=== PATIENT | male | born 1950 | race Caucasian/White ===

== ENCOUNTER 2019-07-17 16:00 | Inpatient (IN) | payer MEDICARE, MEDICAID ==
[2019-07-17 18:42] VITALS: BP 137/73
[2019-07-17] MEDS ORDERED: Maalox 30 mL Cup PO PRN (18:54)
--- NOTE | 2019-07-17 19:20 | History & Physical ---
ADMIT DATE: 07/17/2019 HISTORY OF PRESENT ILLNESS: The patient is a 69-year-old male with long history of psychosis, resident at [facility] admitted to [facility] Department for evaluation and treatment. The patient admitted under Dr. Ashton's service. No fever, no chills, no nausea, no vomiting. The patient has cellulitis of both feet for a few days. PAST MEDICAL HISTORY: Significant for psychosis, chronic constipation, chronic smoking. PAST SURGICAL HISTORY: No recent surgery. ALLERGIES: PENICILLIN. MEDICATIONS: Follow admission reconciliation. SOCIAL HISTORY: Chronic smoker. No alcohol or drug. FAMILY HISTORY: Noncontributory. REVIEW OF SYSTEMS: RENAL SYSTEM: No history of chronic renal disorder. CARDIOVASCULAR SYSTEM: No coronary artery disease. ENDOCRINE SYSTEM: No diabetes or thyroid problem. GASTROINTESTINAL SYSTEM: No upper or lower gastrointestinal bleed. NEUROLOGICAL SYSTEM: No seizure disorder. SKELETOMUSCULAR SYSTEM: No muscular dystrophy. HEMATOLOGICAL SYSTEM: No bleeding tendencies. RESPIRATORY SYSTEM: Chronic smoker. GENITOURINARY SYSTEM: No dysuria or hematuria. PHYSICAL EXAMINATION: GENERAL: She is awake, alert. VITAL SIGNS: Temperature is 97.8, heart rate 90, blood pressure 137/73. HEENT: Normocephalic. Pupils are reactive to light and accommodation. Sclerae clear. NECK: Supple. Negative for lymphadenopathy, JVD or bruit. CHEST: Bilaterally normal. No rhonchi or wheezing. HEART: S1, S2 normal. No murmur or gallop rhythm. ABDOMEN: Soft, bowel sounds positive. EXTREMITIES: No edema. NEUROLOGIC: Awake, alert, mildly confused. No focal muscle deficits. Cranial nerves 2-12 is intact. SKIN: Significant for redness on the dorsum of both feet. ASSESSMENT: 1. Cellulitis of both feet. 2. Chronic constipation. 3. Chronic smoking. 4. Psychosis. PLAN: 1. The patient in the hospital under Dr. Ashton's service. Medical problems addressed during hospitalization is cellulitis of both foot and psychosis. Medical problem addressed at discharge is psychosis. The patient is medically stable for activity. Thank you Dr. Ashton for asking me to see your patient. The patient is a full code. JOB# [id number]
[2019-07-18] MEDS: Haldol Oral Sol.(concentrate) 10 mg/5 mL Udc PO SCH ×3 (09:10→21:16)
[2019-07-18] MEDS: Multivitamin Tab PO SCH (09:12)
--- NOTE | 2019-07-18 17:12 | Internal Medicine Prog Note ---
Internal Medicine Subjective - Subjective Service Date: 07/18/19 Patient seen and examined:: without staff (HE FEELS BETTER) Patient is:: awake, verbal, in bed, talking, confused Per staff patient has:: no adverse event Internal Medicine Objective - Physical Exam Vitals and I&O: Vital Signs Temp 98 F 07/17/19 21:00 Pulse 76 07/17/19 21:00 Resp 16 07/17/19 21:00 BP 126/68 07/17/19 21:00 Pulse Ox 98 07/17/19 21:00 Intake & Output 07/17/19 07/18/19 07/18/19 18:59 06:59 18:59 Intake Total 720 Balance 720 Intake: Oral 720 Other: # Voids 1 # Bowel Movements 1 Weight Source Bedscale Active Medications: Current Medications Acetaminophen (Tylenol) 650 mg PO Q4HR PRN PRN Reason: Mild Pain / Temp above 100 Stop: 09/15/19 18:53 Al Hydrox/Mg Hydrox/Simethicone (Maalox) 30 ml PO Q4HR PRN PRN Reason: GI DISTRESS Stop: 09/15/19 18:53 Divalproex Sodium (Depakote Dr) 500 mg PO DAILY ROSA; Protocol Stop: 09/16/19 08:59 Last Admin: 07/18/19 09:11 Dose: 500 mg Divalproex Sodium (Depakote Dr) 750 mg PO HS ROSA; Protocol Stop: 09/16/19 20:59 Docusate Sodium (Colace) 250 mg PO DAILY ROSA Stop: 09/16/19 08:59 Last Admin: 07/18/19 09:12 Dose: 250 mg Haloperidol Lactate (Haldol Concentrate 10mg/5ml Susp) 2 mg PO TID ROSA; Protocol Stop: 09/16/19 08:59 Last Admin: 07/18/19 14:00 Dose: 2 mg Lorazepam (Ativan) 0.5 mg PO Q4HR PRN; Protocol PRN Reason: Anxiety/Agitation Stop: 08/16/19 20:24 Last Admin: 07/18/19 17:00 Dose: 0.5 mg Multivitamins/Vitamin C (Theragran) 1 tab PO DAILY ROSA Stop: 09/16/19 08:59 Last Admin: 07/18/19 09:12 Dose: 1 tab Risperidone (Risperdal) 2 mg PO BID ROSA; Protocol Stop: 09/16/19 08:59 Last Admin: 07/18/19 17:00 Dose: 2 mg Trihexyphenidyl HCl (Artane) 5 mg PO QID ROSA Stop: 09/15/19 20:59 Last Admin: 07/18/19 16:59 Dose: 5 mg Zolpidem Tartrate (Ambien) 5 mg PO HS PRN PRN Reason: Insomnia Stop: 09/15/19 18:53 Last Admin: 07/17/19 21:11 Dose: 5 mg General: alert HEENT: NC/AT, PERRLA, EOMI, anicteric sclerae, throat clear Neck: Supple, No JVD, No thyromegaly, +2 carotid pulse wo bruit, No LAD Lungs: CTAB Cardiovascular: RRR, Normal S1, Normal S2, without murmur Abdomen: soft, non-tender, non-distended Extremities: rash (OVER BOTH FEET) Neurological: no change Internal Medicine Assmt/Plan - Assessment Assessment: 1.CELLULITES OF BOTH FEET 2.CHRONIC CONSTIPATION 3.CHRONIC SMOKING 4.PSYCHOSIS - Plan Plan: CONTINUE ON CURRENT MEDICATION AND DIET
--- NOTE | 2019-07-18 20:15 | Psychiatric Evaluation ---
DATE OF SERVICE: AGE: 69. SEX: Male. PHYSICIAN: Dr. Ashton. CHIEF COMPLAINT: Aggressive behavior and threatening staff. HISTORY OF PRESENT ILLNESS: The patient is a 69-year-old male with history of schizophrenia. The patient was transferred from [facility] because of verbal abuse to staff and peers as well as hitting the staff. The patient also was unable to follow staff directions. He also has been in angry mood and has been having severe mood swings. PAST PSYCHIATRIC HISTORY: The patient has history of schizophrenia and anxiety. PAST MEDICAL HISTORY: The patient has history of anemia and gastroesophageal reflux disease and has deformities of the toe. SOCIAL HISTORY: The patient lives in [facility]. No known alcohol or street drug use. ALLERGIES: No known allergies. MENTAL STATUS EXAMINATION: The patient appears slightly older than his stated age. Irritable mood. Anxious. Disorganized thoughts. Actively responding. Gets angry and agitated easily. The patient denies auditory or visual hallucinations, but seems to be suspicious and paranoid. He denies any suicidal or homicidal ideations. The patient is alert and oriented to situation, but not to place or person. Impaired immediate and recent memory, but intact remote memories. Poor insight and poor judgment. ASSESSMENT: PRIMARY DIAGNOSIS: Schizophrenic disorder. Rule out schizoaffective disorder. SECONDARY DIAGNOSES: 1. Anemia. 2. Chronic obstructive pulmonary disease. 3. Gastroesophageal reflux disease. TREATMENT PLAN: We will monitor the patient's behavior and condition closely. We will start individual as well as milieu psychotherapy. We will continue psychotropic medications and we will adjust the dose. ESTIMATED LENGTH OF STAY: 5-7 days. PATIENT'S STRENGTHS AND WEAKNESSES: The patient's strength is not clear at this time. Weakness is his ineffective coping and his poor impulse control. AFTER DISCHARGE PLAN: Outpatient treatment and followup. We will continue as an outpatient. CRITERIA FOR DISCHARGE: The patient will not be aggressive and will stabilize psychotropic medications and will establish outpatient treatment plans. [facility]# [id number]
[2019-07-19] MEDS: Haldol Oral Sol.(concentrate) 10 mg/5 mL Udc PO SCH ×3 (08:59→21:55)
[2019-07-19] MEDS: Multivitamin Tab PO SCH (09:00)
--- NOTE | 2019-07-19 19:42 | Internal Medicine Prog Note ---
Internal Medicine Subjective - Subjective Service Date: 07/19/19 Patient seen and examined:: with staff (HE IS DOING BETTER) Patient is:: awake, verbal, in bed, talking, confused Per staff patient has:: no adverse event Internal Medicine Objective - Physical Exam Vitals and I&O: Vital Signs Temp 98.7 F 07/19/19 14:00 Pulse 83 07/19/19 14:00 Resp 20 07/19/19 14:00 BP 129/78 07/19/19 14:00 Pulse Ox 97 07/19/19 14:00 Intake & Output 07/19/19 07/19/19 07/20/19 06:59 18:59 06:59 Intake Total 120 1250 Balance 120 1250 Intake: Oral 120 1250 Other: # Voids 3 Active Medications: Current Medications Acetaminophen (Tylenol) 650 mg PO Q4HR PRN PRN Reason: Mild Pain / Temp above 100 Stop: 09/15/19 18:53 Al Hydrox/Mg Hydrox/Simethicone (Maalox) 30 ml PO Q4HR PRN PRN Reason: GI DISTRESS Stop: 09/15/19 18:53 Divalproex Sodium (Depakote Dr) 500 mg PO DAILY ROSA; Protocol Stop: 09/16/19 08:59 Last Admin: 07/19/19 09:00 Dose: 500 mg Divalproex Sodium (Depakote Dr) 750 mg PO HS ROSA; Protocol Stop: 09/16/19 20:59 Last Admin: 07/18/19 21:16 Dose: 750 mg Docusate Sodium (Colace) 250 mg PO DAILY ROSA Stop: 09/16/19 08:59 Last Admin: 07/19/19 09:00 Dose: 250 mg Haloperidol Lactate (Haldol Concentrate 10mg/5ml Susp) 2 mg PO TID ROSA; Protocol Stop: 09/16/19 08:59 Last Admin: 07/19/19 14:00 Dose: 2 mg Lorazepam (Ativan) 0.5 mg PO Q4HR PRN; Protocol PRN Reason: Anxiety/Agitation Stop: 08/16/19 20:24 Last Admin: 07/19/19 09:00 Dose: 0.5 mg Multivitamins/Vitamin C (Theragran) 1 tab PO DAILY ROSA Stop: 09/16/19 08:59 Last Admin: 07/19/19 09:00 Dose: 1 tab Risperidone (Risperdal) 2 mg PO BID ROSA; Protocol Stop: 09/16/19 08:59 Last Admin: 07/19/19 18:04 Dose: 2 mg Trihexyphenidyl HCl (Artane) 5 mg PO QID ROSA Stop: 09/15/19 20:59 Last Admin: 07/19/19 18:04 Dose: 5 mg Zolpidem Tartrate (Ambien) 5 mg PO HS PRN PRN Reason: Insomnia Stop: 09/15/19 18:53 Last Admin: 07/18/19 21:17 Dose: 5 mg General: alert HEENT: NC/AT, PERRLA, EOMI, anicteric sclerae, throat clear Neck: Supple, No JVD, No thyromegaly, +2 carotid pulse wo bruit, No LAD Lungs: CTAB Cardiovascular: RRR, Normal S1, Normal S2, without murmur Abdomen: soft, non-tender, non-distended Extremities: rash (OVER BOTH FEET) Neurological: no change Internal Medicine Assmt/Plan - Assessment Assessment: 1.CELLULITES OF BOTH FEET 2.CHRONIC CONSTIPATION 3.CHRONIC SMOKING 4.PSYCHOSIS - Plan Plan: CONTINUE ON CURRENT MEDICATION AND DIET
--- NOTE | 2019-07-19 23:08 | Progress Notes ---
DATE: 07/19/2019 SUBJECTIVE: Chart was reviewed and the patient interviewed. Also discussed the patient's condition with the staff and reviewed records and labs. The patient is still in angry mood and he is still easily agitated. The patient also is still guarded and still wants to be left alone. The patient also still needs lots of redirections. Otherwise, the patient started to take his medications with no side effects of medications. ASSESSMENT: The patient is still in angry mood and still needs close monitoring. TREATMENT PLAN: Continue to monitor behavior and condition closely. Also, continue adjusting psychotropic medications and working on behavioral modification. JOB# [id number]
[2019-07-20] MEDS: Haldol Oral Sol.(concentrate) 10 mg/5 mL Udc PO SCH ×3 (08:37→20:44)
[2019-07-20] MEDS: Multivitamin Tab PO SCH (08:37)
--- NOTE | 2019-07-20 20:35 | Internal Medicine Prog Note ---
Internal Medicine Subjective - Subjective Service Date: 07/20/19 Patient seen and examined:: without staff (HE IS STILL CONFUSED) Patient is:: awake, verbal, in bed, talking, confused Per staff patient has:: no adverse event Internal Medicine Objective - Physical Exam Vitals and I&O: Vital Signs Temp 98.8 F 07/20/19 20:06 Pulse 75 07/20/19 20:06 Resp 20 07/20/19 20:06 BP 128/71 07/20/19 20:06 Pulse Ox 95 07/20/19 20:06 Intake & Output 07/20/19 07/20/19 07/21/19 06:59 18:59 06:59 Intake Total 120 1600 240 Balance 120 1600 240 Intake: Oral 120 1600 240 Other: # Voids 1 2 # Bowel Movements 0 1 Active Medications: Current Medications Acetaminophen (Tylenol) 650 mg PO Q4HR PRN PRN Reason: Mild Pain (Scale 1-3) Stop: 09/15/19 18:53 Acetaminophen (Tylenol) 650 mg PO Q4H PRN PRN Reason: TEMP ABOVE 100 Stop: 09/18/19 14:41 Al Hydrox/Mg Hydrox/Simethicone (Maalox) 30 ml PO Q4HR PRN PRN Reason: GI DISTRESS Stop: 09/15/19 18:53 Divalproex Sodium (Depakote Dr) 500 mg PO DAILY ROSA; Protocol Stop: 09/16/19 08:59 Last Admin: 07/20/19 08:39 Dose: 500 mg Divalproex Sodium (Depakote Dr) 1,000 mg PO HS ROSA; Protocol Stop: 09/18/19 20:59 Docusate Sodium (Colace) 250 mg PO DAILY ROSA Stop: 09/16/19 08:59 Last Admin: 07/20/19 08:39 Dose: 250 mg Haloperidol Lactate (Haldol Concentrate 10mg/5ml Susp) 2 mg PO TID ROSA; Protocol Stop: 09/16/19 08:59 Last Admin: 07/20/19 13:41 Dose: 2 mg Lorazepam (Ativan) 0.5 mg PO Q4HR PRN; Protocol PRN Reason: Anxiety/Agitation Stop: 08/16/19 20:24 Last Admin: 07/19/19 09:00 Dose: 0.5 mg Multivitamins/Vitamin C (Theragran) 1 tab PO DAILY [facility] Stop: 09/16/19 08:59 Last Admin: 07/20/19 08:37 Dose: 1 tab Risperidone (Risperdal) 2 mg PO BID [facility]; Protocol Stop: 09/16/19 08:59 Last Admin: 07/20/19 16:21 Dose: 2 mg Trihexyphenidyl HCl (Artane) 5 mg PO QID ROSA Stop: 09/15/19 20:59 Last Admin: 07/20/19 16:21 Dose: 5 mg Zolpidem Tartrate (Ambien) 5 mg PO HS PRN PRN Reason: Insomnia Stop: 09/15/19 18:53 Last Admin: 07/18/19 21:17 Dose: 5 mg General: alert HEENT: NC/AT, PERRLA, EOMI, anicteric sclerae, throat clear Neck: Supple, No JVD, No thyromegaly, +2 carotid pulse wo bruit, No LAD Lungs: CTAB Cardiovascular: RRR, Normal S1, Normal S2, without murmur Abdomen: soft, non-tender, non-distended Extremities: rash (OVER BOTH FEET) Neurological: no change Internal Medicine Assmt/Plan - Assessment Assessment: 1.CELLULITES OF BOTH FEET 2.CHRONIC CONSTIPATION 3.CHRONIC SMOKING 4.PSYCHOSIS - Plan Plan: CONTINUE ON CURRENT MEDICATION AND DIET
[2019-07-21] MEDS: Haldol Oral Sol.(concentrate) 10 mg/5 mL Udc PO SCH ×3 (08:19→20:49)
[2019-07-21] MEDS: Multivitamin Tab PO SCH (08:20)
--- NOTE | 2019-07-21 09:44 | Progress Notes ---
DATE: 07/20/2019 SUBJECTIVE: Chart reviewed and the patient interviewed. Also discussed the patient's condition with the staff and reviewed records and labs. The patient continued to be suspicious. The patient also is still resisting care and he is still fighting with staff. The patient also is guarded and is having unpredictable behavior. Also, at times, the patient is aggressive. He also is still in angry mood. Otherwise, the patient is compliant with taking his medications with no side effects of medications. ASSESSMENT: The patient is still agitated and psychotic and he can be dangerous to others. TREATMENT PLAN: We will increase Depakote to 500 mg in the morning and 1000 mg at bedtime. Also, we will monitor Depakote blood level. Also, continue to work on his poor impulse control and his agitation. JOB# [id number]
--- NOTE | 2019-07-21 13:03 | Internal Medicine Prog Note ---
Internal Medicine Subjective - Subjective Service Date: 07/21/19 Patient seen and examined:: without staff (HE IS DOINGBETTER) Patient is:: awake, verbal, in bed, talking, confused Per staff patient has:: no adverse event Internal Medicine Objective - Physical Exam Vitals and I&O: Vital Signs Temp 97.8 F 07/21/19 06:31 Pulse 68 07/21/19 06:31 Resp 18 07/21/19 06:31 BP 124/80 07/21/19 06:31 Pulse Ox 96 07/21/19 06:31 Intake & Output 07/20/19 07/21/19 07/21/19 18:59 06:59 18:59 Intake Total 1600 240 Balance 1600 240 Intake: Oral 1600 240 Other: # Voids 3 # Bowel Movements 1 0 Active Medications: Current Medications Acetaminophen (Tylenol) 650 mg PO Q4HR PRN PRN Reason: Mild Pain (Scale 1-3) Stop: 09/15/19 18:53 Acetaminophen (Tylenol) 650 mg PO Q4H PRN PRN Reason: TEMP ABOVE 100 Stop: 09/18/19 14:41 Al Hydrox/Mg Hydrox/Simethicone (Maalox) 30 ml PO Q4HR PRN PRN Reason: GI DISTRESS Stop: 09/15/19 18:53 Divalproex Sodium (Depakote Dr) 500 mg PO DAILY ROSA; Protocol Stop: 09/16/19 08:59 Last Admin: 07/21/19 08:20 Dose: 500 mg Divalproex Sodium (Depakote Dr) 1,000 mg PO HS ROSA; Protocol Stop: 09/18/19 20:59 Last Admin: 07/20/19 20:43 Dose: 1,000 mg Docusate Sodium (Colace) 250 mg PO DAILY [facility]A Stop: 09/16/19 08:59 Last Admin: 07/21/19 08:20 Dose: 250 mg Haloperidol Lactate (Haldol Concentrate 10mg/5ml Susp) 2 mg PO TID ROSA; Protocol Stop: 09/16/19 08:59 Last Admin: 07/21/19 08:19 Dose: 2 mg Lorazepam (Ativan) 0.5 mg PO Q4HR PRN; Protocol PRN Reason: Anxiety/Agitation Stop: 08/16/19 20:24 Last Admin: 07/19/19 09:00 Dose: 0.5 mg Multivitamins/Vitamin C (Theragran) 1 tab PO DAILY [facility] Stop: 09/16/19 08:59 Last Admin: 07/21/19 08:20 Dose: 1 tab Risperidone (Risperdal) 2 mg PO BID [facility]; Protocol Stop: 09/16/19 08:59 Last Admin: 07/21/19 08:19 Dose: 2 mg Trihexyphenidyl HCl (Artane) 5 mg PO QID [facility] Stop: 09/15/19 20:59 Last Admin: 07/21/19 08:19 Dose: 5 mg Zolpidem Tartrate (Ambien) 5 mg PO HS PRN PRN Reason: Insomnia Stop: 09/15/19 18:53 Last Admin: 07/18/19 21:17 Dose: 5 mg General: alert HEENT: NC/AT, PERRLA, EOMI, anicteric sclerae, throat clear Neck: Supple, No JVD, No thyromegaly, +2 carotid pulse wo bruit, No LAD Lungs: CTAB Cardiovascular: RRR, Normal S1, Normal S2, without murmur Abdomen: soft, non-tender, non-distended Extremities: rash (OVER BOTH FEET) Neurological: no change Internal Medicine Assmt/Plan - Assessment Assessment: 1.CELLULITES OF BOTH FEET 2.CHRONIC CONSTIPATION 3.CHRONIC SMOKING 4.PSYCHOSIS - Plan Plan: CONTINUE ON CURRENT MEDICATION AND DIET
--- NOTE | 2019-07-21 22:42 | Progress Notes ---
DATE: 07/21/2019 DATE OF SERVICE: 07/21/2019 SUBJECTIVE: Chart was reviewed and the patient interviewed. Also discussed the patient's condition with the staff and reviewed records and labs. The patient is still in angry and in irritable mood. The patient also is still suspicious and is still paranoid and he needs close monitoring. He also is still having severe mood swings with aggressive behavior. He is also resisting care. The patient also is still having unpredictable behavior. Otherwise, the patient continued to comply with taking his medications with no side effects of medications. Depakote was increased yesterday to total of 1500 mg every day and we will continue same dose. Also, we will get a Depakote blood level next Saturday. ASSESSMENT: The patient is still agitated and is still psychotic and can be dangerous to others. TREATMENT PLAN: Continue to monitor his behavior and his condition closely. Also, continue Depakote and Risperdal same dose and continue to follow up closely. JOB# [id number]
[2019-07-22] MEDS ORDERED: Haldol Oral Sol.(concentrate) 10 mg/5 mL Udc PO SCH (09:00)
[2019-07-22] MEDS: Multivitamin Tab PO SCH (09:06)
--- NOTE | 2019-07-22 09:41 | Progress Notes ---
DATE: 07/21/2019 SUBJECTIVE: Chart was reviewed and the patient interviewed. Also discussed the patient's condition with the staff and reviewed records and labs. The patient continued to be loud and demanding and easily agitated. The patient also threatened nurses at times and still has threatening behavior. Also, the patient has severe mood swings and severe irritability with difficulty following directions. The patient also is still paranoid and suspicious. On the other hand, the patient continued to comply with taking his medications with no side effects of medications. ASSESSMENT: The patient is still psychotic, agitated and can be dangerous to others. TREATMENT PLAN: We will continue to monitor behavior and condition closely. Also, we will decrease Haldol to 1 mg twice a day and we would increase Risperdal to 3 mg twice a day. Hopefully, that will help with his agitation and irritability and also we will try to keep the patient on only one antipsychotic medication for list of side effects. Also, continue working on his anger and irritability and mood swings and continue to follow up closely. JOB# [id number]
--- NOTE | 2019-07-22 20:57 | Internal Medicine Prog Note ---
Internal Medicine Subjective - Subjective Service Date: 07/22/19 Patient seen and examined:: without staff (HE IS DOING WELL) Patient is:: awake, verbal, in bed, talking, confused Per staff patient has:: no adverse event Internal Medicine Objective - Physical Exam Vitals and I&O: Vital Signs Temp 97 F 07/22/19 14:00 Pulse 65 07/22/19 14:00 Resp 18 07/22/19 14:00 BP 156/77 07/22/19 14:00 Pulse Ox 96 07/22/19 14:00 Intake & Output 07/22/19 07/22/19 07/23/19 06:59 18:59 06:59 Intake Total 400 1200 Output Total 1 Balance 400 1199 Intake: Oral 400 1200 Output: Stool 1 Other: # Voids 1 # Bowel Movements 0 Active Medications: Current Medications Acetaminophen (Tylenol) 650 mg PO Q4HR PRN PRN Reason: Mild Pain (Scale 1-3) Stop: 09/15/19 18:53 Acetaminophen (Tylenol) 650 mg PO Q4H PRN PRN Reason: TEMP ABOVE 100 Stop: 09/18/19 14:41 Al Hydrox/Mg Hydrox/Simethicone (Maalox) 30 ml PO Q4HR PRN PRN Reason: GI DISTRESS Stop: 09/15/19 18:53 Divalproex Sodium (Depakote Dr) 500 mg PO DAILY [facility]; Protocol Stop: 09/16/19 08:59 Last Admin: 07/22/19 09:06 Dose: 500 mg Divalproex Sodium (Depakote Dr) 1,000 mg PO HS [facility]; Protocol Stop: 09/18/19 20:59 Last Admin: 07/21/19 20:48 Dose: 1,000 mg Docusate Sodium (Colace) 250 mg PO DAILY [facility] Stop: 09/16/19 08:59 Last Admin: 07/22/19 09:06 Dose: 250 mg Haloperidol (Haldol) 1 mg PO BID [facility]; Protocol Stop: 09/20/19 16:59 Last Admin: 07/22/19 17:16 Dose: 1 mg Lorazepam (Ativan) 0.5 mg PO Q4HR PRN; Protocol PRN Reason: Anxiety/Agitation Stop: 08/16/19 20:24 Last Admin: 07/22/19 20:32 Dose: 0.5 mg Multivitamins/Vitamin C (Theragran) 1 tab PO DAILY [facility] Stop: 09/16/19 08:59 Last Admin: 07/22/19 09:06 Dose: 1 tab Risperidone (Risperdal) 3 mg PO BID [facility]; Protocol Stop: 09/20/19 08:59 Last Admin: 07/22/19 17:16 Dose: 3 mg Trihexyphenidyl HCl (Artane) 5 mg PO BID [facility] Stop: 09/20/19 08:59 Last Admin: 07/22/19 17:16 Dose: 5 mg Zolpidem Tartrate (Ambien) 5 mg PO HS PRN PRN Reason: Insomnia Stop: 09/15/19 18:53 Last Admin: 07/18/19 21:17 Dose: 5 mg General: alert HEENT: NC/AT, PERRLA, EOMI, anicteric sclerae, throat clear Neck: Supple, No JVD, No thyromegaly, +2 carotid pulse wo bruit, No LAD Lungs: CTAB Cardiovascular: RRR, Normal S1, Normal S2, without murmur Abdomen: soft, non-tender, non-distended Extremities: rash (OVER BOTH FEET) Neurological: no change Internal Medicine Assmt/Plan - Assessment Assessment: 1.CELLULITES OF BOTH FEET 2.CHRONIC CONSTIPATION 3.CHRONIC SMOKING 4.PSYCHOSIS - Plan Plan: CONTINUE ON CURRENT MEDICATION AND DIET Nutritional Asmnt/Malnutr-PDOC - Dietary Evaluation Malnutrition Findings (Please click <Entered> for more info): Nutritional Asmnt/Malnutrition Start: 07/21/19 15: 52 Text: Status: Complete Freq: Protocol: Document 07/21/19 15:52 FAYE (Rec: 07/21/19 15:57 FAYE [id number]) Nutritional Asmnt/Malnutrition Patient General Information Nutritional Screening Low Risk Diagnosis Psychosis Pertinent Medical Hx/Surgical Hx Chronic smoking, Chronic constipation, Psychosis Subjective Information Consult: Wound to LT Dorsal Foot, redness to both feet Pt is a 69-year-old male admitted on 07/17 d/t psychosis. Pt is eating an estimated 100% of meals since admit date Per Meal/Nutrition Activity Record. Dietary is currently providing an estimated 2400 kcals and 90 gm Pro, to meet 100% kcal and 100% Pro needs. Per wound care note (07/17), Intrinsic factors that delay wound healing: Vasoconstriction effects from smoking. Extrinsic factors that delay wound healing: Decreased mobility. Both feet present with Mild non-pitting edema. Pt is meeting estimated nutritional needs-adequate to support wound healing. Recommend Nurse to encourage fluid intake to reduce risk for constipation d/t pt Hx chronic constipation. Recommend diet changed to Cardiac d/t labs (07/20) Triglycerides 349, HDL 35. Spoke with RNAlley concerning recommendation for MD. Anthropometrics HT: 59 WT: 175 LB (79.55 kg) BMI: 25.84 (Overweight) GI/ Skin Integrity GI: WNL, Soft, Non-tender, Round BM: 07/19 x1 I/O: 1840/Not Noted Skin: Area of concern, reddened, erythema Wound: cellulitis of both feet , wound to LT dorsal foot Elijah: 18 Diet Order: Regular Estimated Energy Needs: ( Geriatric, CBW) 3600-1408 kcals (25-30 kcals/ kg) 80-95g Pro (1.0-1.2 g/kg) 8740-9528 ml (25-30 ml/kg) Current Diet Order/ Nutrition Support Regular Pertinent Medications Maalox (PRN), Colace, Theragran Pertinent Labs 07/20: Triglycerides 349, HDL 35 07/17: Glucose 100, Na 131 Nutritional Hx/Data Height 1.75 m Height (Calculated Centimeters) 175.3 Current Weight (lbs) 79.379 kg Weight (Calculated Kilograms) 79.4 Weight (Calculated Grams) 39011.7 [place] Body Weight 160 Lb (72.73 kg) % [place] Body Weight 109 Body Mass Index (BMI) 25.8 Weight Status Overweight GI Symptoms Skin Integrity/Comment: Skin: Area of concern, reddened, erythema Wound: cellulitis of both feet , wound to LT dorsal foot Elijah: 18 Per wound care note (07/17), Intrinsic factors that delay wound healing: Vasoconstriction effects from smoking. Extrinsic factors that delay wound healing: Decreased mobility. Both feet present with Mild non- pitting edema. Pt is meeting estimated nutritional needs- adequate to support wound healing. Current %PO Good (75-100%) Estimated Nutritional Goals BEE in Kcals: Using Current wt Calories/Kcals/Kg 25-30 Kcals Calculated 2245-3217 Protein: Using Current wt Protein g/k.0-1.2 Protein Calculated 80-95 Fluid: ml 4329-4540 ml (25-30 ml/kg) Nutritional Problem 1. Problem Problem Altered nutrition related labs Etiology r/t possible high fat intake/ family Hx Signs/Symptoms: aeb labs (07/20) Triglycerides 349, HDL 35. Malnutrition Related to Morbid Obesity Malnutrition related to morbid obesity No Intervention/Recommendation Comments 1. Recommend diet changed to Cardiac d/t labs (07/20) Triglycerides 349, HDL 2. Nurse to encourage fluid intake to reduce risk for constipation d/t pt Hx chronic constipation. Expected Outcomes/Goals Expected Outcomes/Goals 1. PO intake to continue to meet >75% of estimated nutritional needs. 2. Monitor PO intake, wt, nutrition related labs, and skin integrity to trend WNL. 3. F/U as low risk in 7-10 days, 07/28-07/31
[2019-07-23] MEDS: Multivitamin Tab PO SCH (08:23)
--- NOTE | 2019-07-23 08:52 | Progress Notes ---
DATE: SUBJECTIVE: Chart was reviewed and the patient interviewed. Also discussed the patient's condition with the staff and reviewed records and labs. The patient is still in irritable mood and he is still angry. The patient is also still having severe mood swings and easily agitated. Also, he is selectively mute and he still has threatening behavior toward the staff. Also, during interview, the patient is loud and is still unable to carry on coherent conversation and his thought processes are circumstantial with flight of ideas. The patient denies any intention to harm himself or others. He still has difficulty with organizing his thoughts or expressing herself. ASSESSMENT: The patient is still agitated and is in irritable mood. TREATMENT PLAN: Continue to monitor behavior and condition closely. Also, continue adjusting psychotropic medications and working on behavioral modification. Also, yesterday, her Risperdal was increased and at the same time, Haldol was decreased and we will continue cross tapering the medications and continue to follow up. [facility]# [id number]
--- NOTE | 2019-07-23 18:32 | Internal Medicine Prog Note ---
Internal Medicine Subjective - Subjective Service Date: 07/23/19 Patient seen and examined:: with staff (HE FEELS WELL) Patient is:: awake, verbal, in bed, talking, confused Per staff patient has:: no adverse event Internal Medicine Objective - Physical Exam Vitals and I&O: Vital Signs Temp 97 F 07/22/19 14:00 Pulse 65 07/22/19 14:00 Resp 18 07/22/19 14:00 BP 156/77 07/22/19 14:00 Pulse Ox 96 07/22/19 14:00 Intake & Output 07/22/19 07/23/19 07/23/19 18:59 06:59 18:59 Intake Total 1200 120 Output Total 1 Balance 1199 120 Intake: Oral 1200 120 Output: Stool 1 Other: # Voids 2 Stool Characteristics Formed Brown Active Medications: Current Medications Acetaminophen (Tylenol) 650 mg PO Q4HR PRN PRN Reason: Mild Pain (Scale 1-3) Stop: 09/15/19 18:53 Acetaminophen (Tylenol) 650 mg PO Q4H PRN PRN Reason: TEMP ABOVE 100 Stop: 09/18/19 14:41 Al Hydrox/Mg Hydrox/Simethicone (Maalox) 30 ml PO Q4HR PRN PRN Reason: GI DISTRESS Stop: 09/15/19 18:53 Divalproex Sodium (Depakote Dr) 500 mg PO DAILY [facility]; Protocol Stop: 09/16/19 08:59 Last Admin: 07/23/19 08:21 Dose: 500 mg Divalproex Sodium (Depakote Dr) 1,000 mg PO HS ROSA; Protocol Stop: 09/18/19 20:59 Last Admin: 07/22/19 21:59 Dose: 1,000 mg Docusate Sodium (Colace) 250 mg PO DAILY [facility] Stop: 09/16/19 08:59 Last Admin: 07/23/19 08:23 Dose: 250 mg Haloperidol (Haldol) 1 mg PO BID [facility]; Protocol Stop: 09/20/19 16:59 Last Admin: 07/23/19 16:27 Dose: 1 mg Lorazepam (Ativan) 0.5 mg PO Q4HR PRN; Protocol PRN Reason: Anxiety/Agitation Stop: 08/16/19 20:24 Last Admin: 07/22/19 20:32 Dose: 0.5 mg Multivitamins/Vitamin C (Theragran) 1 tab PO DAILY [facility] Stop: 09/16/19 08:59 Last Admin: 07/23/19 08:23 Dose: 1 tab Risperidone (Risperdal) 3 mg PO BID [facility]; Protocol Stop: 09/20/19 08:59 Last Admin: 07/23/19 16:27 Dose: 3 mg Trihexyphenidyl HCl (Artane) 5 mg PO BID [facility] Stop: 09/20/19 08:59 Last Admin: 07/23/19 16:27 Dose: 5 mg Zolpidem Tartrate (Ambien) 5 mg PO HS PRN PRN Reason: Insomnia Stop: 09/15/19 18:53 Last Admin: 07/22/19 21:59 Dose: 5 mg General: alert HEENT: NC/AT, PERRLA, EOMI, anicteric sclerae, throat clear Neck: Supple, No JVD, No thyromegaly, +2 carotid pulse wo bruit, No LAD Lungs: CTAB Cardiovascular: RRR, Normal S1, Normal S2, without murmur Abdomen: soft, non-tender, non-distended Extremities: rash (OVER BOTH FEET), other (THE SKIN OF BOTH FEETS ARE IMPROVING) Neurological: no change Internal Medicine Assmt/Plan - Assessment Assessment: 1.CELLULITES OF BOTH FEET 2.CHRONIC CONSTIPATION 3.CHRONIC SMOKING 4.PSYCHOSIS - Plan Plan: CONTINUE ON CURRENT MEDICATION AND DIET.LOTRISON CREAM BID Nutritional Asmnt/Malnutr-PDOC - Dietary Evaluation Malnutrition Findings (Please click <Entered> for more info): Nutritional Asmnt/Malnutrition Start: 07/21/19 15: 52 Text: Status: Complete Freq: Protocol: Document 07/21/19 15:52 FAYE (Rec: 07/21/19 15:57 FAYE [id number]) Nutritional Asmnt/Malnutrition Patient General Information Nutritional Screening Low Risk Diagnosis Psychosis Pertinent Medical Hx/Surgical Hx Chronic smoking, Chronic constipation, Psychosis Subjective Information Consult: Wound to LT Dorsal Foot, redness to both feet Pt is a 69-year-old male admitted on 07/17 d/t psychosis. Pt is eating an estimated 100% of meals since admit date Per Meal/Nutrition Activity Record. Dietary is currently providing an estimated 2400 kcals and 90 gm Pro, to meet 100% kcal and 100% Pro needs. Per wound care note (07/17), Intrinsic factors that delay wound healing: Vasoconstriction effects from smoking. Extrinsic factors that delay wound healing: Decreased mobility. Both feet present with Mild non-pitting edema. Pt is meeting estimated nutritional needs-adequate to support wound healing. Recommend Nurse to encourage fluid intake to reduce risk for constipation d/t pt Hx chronic constipation. Recommend diet changed to Cardiac d/t labs (07/20) Triglycerides 349, HDL 35. Spoke with RNAlley concerning recommendation for MD. Anthropometrics HT: 59 WT: 175 LB (79.55 kg) BMI: 25.84 (Overweight) GI/ Skin Integrity GI: WNL, Soft, Non-tender, Round BM: 07/19 x1 I/O: 1840/Not Noted Skin: Area of concern, reddened, erythema Wound: cellulitis of both feet , wound to LT dorsal foot Elijah: 18 Diet Order: Regular Estimated Energy Needs: ( Geriatric, CBW) 4861-0480 kcals (25-30 kcals/ kg) 80-95g Pro (1.0-1.2 g/kg) 6184-8177 ml (25-30 ml/kg) Current Diet Order/ Nutrition Support Regular Pertinent Medications Maalox (PRN), Colace, Theragran Pertinent Labs 07/20: Triglycerides 349, HDL 35 07/17: Glucose 100, Na 131 Nutritional Hx/Data Height 1.75 m Height (Calculated Centimeters) 175.3 Current Weight (lbs) 79.379 kg Weight (Calculated Kilograms) 79.4 Weight (Calculated Grams) 48554.7 [place] Body Weight 160 Lb (72.73 kg) % [place] Body Weight 109 Body Mass Index (BMI) 25.8 Weight Status Overweight GI Symptoms Skin Integrity/Comment: Skin: Area of concern, reddened, erythema Wound: cellulitis of both feet , wound to LT dorsal foot Elijah: 18 Per wound care note (07/17), Intrinsic factors that delay wound healing: Vasoconstriction effects from smoking. Extrinsic factors that delay wound healing: Decreased mobility. Both feet present with Mild non- pitting edema. Pt is meeting estimated nutritional needs- adequate to support wound healing. Current %PO Good (75-100%) Estimated Nutritional Goals BEE in Kcals: Using Current wt Calories/Kcals/Kg 25-30 Kcals Calculated 4078-5661 Protein: Using Current wt Protein g/k.0-1.2 Protein Calculated 80-95 Fluid: ml 9790-1021 ml (25-30 ml/kg) Nutritional Problem 1. Problem Problem Altered nutrition related labs Etiology r/t possible high fat intake/ family Hx Signs/Symptoms: aeb labs (07/20) Triglycerides 349, HDL 35. Malnutrition Related to Morbid Obesity Malnutrition related to morbid obesity No Intervention/Recommendation Comments 1. Recommend diet changed to Cardiac d/t labs (07/20) Triglycerides 349, HDL 2. Nurse to encourage fluid intake to reduce risk for constipation d/t pt Hx chronic constipation. Expected Outcomes/Goals Expected Outcomes/Goals 1. PO intake to continue to meet >75% of estimated nutritional needs. 2. Monitor PO intake, wt, nutrition related labs, and skin integrity to trend WNL. 3. F/U as low risk in 7-10 days, 07/28-07/31
[2019-07-24] MEDS: Multivitamin Tab PO SCH (09:10)
[2019-07-24] MEDS: Betamethasone/Clotrimazole Cream 15 gm Tube TP SCH ×2 (15:54→16:35)
--- NOTE | 2019-07-24 20:39 | Internal Medicine Prog Note ---
Internal Medicine Subjective - Subjective Service Date: 07/24/19 Patient seen and examined:: without staff (HE FEELS WELL) Patient is:: awake, verbal, in bed, talking, confused Per staff patient has:: no adverse event Internal Medicine Objective - Physical Exam Vitals and I&O: Vital Signs Temp 97 F 07/22/19 14:00 Pulse 65 07/22/19 14:00 Resp 18 07/22/19 14:00 BP 156/77 07/22/19 14:00 Pulse Ox 96 07/22/19 14:00 Intake & Output 07/24/19 07/24/19 07/25/19 06:59 18:59 06:59 Intake Total 120 1250 Balance 120 1250 Intake: Oral 120 1250 Other: # Voids 2 Active Medications: Current Medications Acetaminophen (Tylenol) 650 mg PO Q4HR PRN PRN Reason: Mild Pain (Scale 1-3) Stop: 09/15/19 18:53 Acetaminophen (Tylenol) 650 mg PO Q4H PRN PRN Reason: TEMP ABOVE 100 Stop: 09/18/19 14:41 Al Hydrox/Mg Hydrox/Simethicone (Maalox) 30 ml PO Q4HR PRN PRN Reason: GI DISTRESS Stop: 09/15/19 18:53 Betamethasone/Clotrimazole (Lotrisone Cream) 1 appl TP BID [facility] Stop: 09/22/19 14:59 Last Admin: 07/24/19 16:35 Dose: 1 appl Divalproex Sodium (Depakote Dr) 500 mg PO DAILY [facility]; Protocol Stop: 09/16/19 08:59 Last Admin: 07/24/19 09:11 Dose: 500 mg Divalproex Sodium (Depakote Dr) 1,000 mg PO HS [facility]; Protocol Stop: 09/18/19 20:59 Last Admin: 07/23/19 21:33 Dose: 1,000 mg Docusate Sodium (Colace) 250 mg PO DAILY [facility] Stop: 09/16/19 08:59 Last Admin: 07/24/19 09:10 Dose: 250 mg Haloperidol (Haldol) 1 mg PO BID [facility]; Protocol Stop: 09/20/19 16:59 Last Admin: 07/24/19 16:35 Dose: 1 mg Lorazepam (Ativan) 0.5 mg PO Q4HR PRN; Protocol PRN Reason: Anxiety/Agitation Stop: 08/16/19 20:24 Last Admin: 07/22/19 20:32 Dose: 0.5 mg Multivitamins/Vitamin C (Theragran) 1 tab PO DAILY [facility] Stop: 09/16/19 08:59 Last Admin: 07/24/19 09:10 Dose: 1 tab Risperidone (Risperdal) 3 mg PO BID [facility]; Protocol Stop: 09/20/19 08:59 Last Admin: 07/24/19 16:34 Dose: 3 mg Trihexyphenidyl HCl (Artane) 5 mg PO BID [facility] Stop: 09/20/19 08:59 Last Admin: 07/24/19 16:35 Dose: 5 mg Zolpidem Tartrate (Ambien) 5 mg PO HS PRN PRN Reason: Insomnia Stop: 09/15/19 18:53 Last Admin: 07/22/19 21:59 Dose: 5 mg General: alert HEENT: NC/AT, PERRLA, EOMI, anicteric sclerae, throat clear Neck: Supple, No JVD, No thyromegaly, +2 carotid pulse wo bruit, No LAD Lungs: CTAB Cardiovascular: RRR, Normal S1, Normal S2, without murmur Abdomen: soft, non-tender, non-distended Extremities: rash (OVER BOTH FEET), other (THE SKIN OF BOTH FEETS ARE IMPROVING) Neurological: no change Internal Medicine Assmt/Plan - Assessment Assessment: 1.CELLULITES OF BOTH FEET 2.CHRONIC CONSTIPATION 3.CHRONIC SMOKING 4.PSYCHOSIS - Plan Plan: CONTINUE ON CURRENT MEDICATION AND DIET.LOTRISON CREAM BID Nutritional Asmnt/Malnutr-PDOC - Dietary Evaluation Malnutrition Findings (Please click <Entered> for more info): Nutritional Asmnt/Malnutrition Start: 07/21/19 15: 52 Text: Status: Complete Freq: Protocol: Document 07/21/19 15:52 FAYE (Rec: 07/21/19 15:57 [email or web address]) Nutritional Asmnt/Malnutrition Patient General Information Nutritional Screening Low Risk Diagnosis Psychosis Pertinent Medical Hx/Surgical Hx Chronic smoking, Chronic constipation, Psychosis Subjective Information Consult: Wound to LT Dorsal Foot, redness to both feet Pt is a 69-year-old male admitted on 07/17 d/t psychosis. Pt is eating an estimated 100% of meals since admit date Per Meal/Nutrition Activity Record. Dietary is currently providing an estimated 2400 kcals and 90 gm Pro, to meet 100% kcal and 100% Pro needs. Per wound care note (07/17), Intrinsic factors that delay wound healing: Vasoconstriction effects from smoking. Extrinsic factors that delay wound healing: Decreased mobility. Both feet present with Mild non-pitting edema. Pt is meeting estimated nutritional needs-adequate to support wound healing. Recommend Nurse to encourage fluid intake to reduce risk for constipation d/t pt Hx chronic constipation. Recommend diet changed to Cardiac d/t labs (07/20) Triglycerides 349, HDL 35. Spoke with RN, Alley concerning recommendation for MD. Anthropometrics HT: 59 WT: 175 LB (79.55 kg) BMI: 25.84 (Overweight) GI/ Skin Integrity GI: WNL, Soft, Non-tender, Round BM: 07/19 x1 I/O: 1840/Not Noted Skin: Area of concern, reddened, erythema Wound: cellulitis of both feet , wound to LT dorsal foot Elijah: 18 Diet Order: Regular Estimated Energy Needs: ( Geriatric, CBW) 4835-3015 kcals (25-30 kcals/ kg) 80-95g Pro (1.0-1.2 g/kg) 9114-8916 ml (25-30 ml/kg) Current Diet Order/ Nutrition Support Regular Pertinent Medications Maalox (PRN), Colace, Theragran Pertinent Labs 07/20: Triglycerides 349, HDL 35 07/17: Glucose 100, Na 131 Nutritional Hx/Data Height 1.75 m Height (Calculated Centimeters) 175.3 Current Weight (lbs) 79.379 kg Weight (Calculated Kilograms) 79.4 Weight (Calculated Grams) 86588.7 [place] Body Weight 160 Lb (72.73 kg) % [place] Body Weight 109 Body Mass Index (BMI) 25.8 Weight Status Overweight GI Symptoms Skin Integrity/Comment: Skin: Area of concern, reddened, erythema Wound: cellulitis of both feet , wound to LT dorsal foot Elijah: 18 Per wound care note (07/17), Intrinsic factors that delay wound healing: Vasoconstriction effects from smoking. Extrinsic factors that delay wound healing: Decreased mobility. Both feet present with Mild non- pitting edema. Pt is meeting estimated nutritional needs- adequate to support wound healing. Current %PO Good (75-100%) Estimated Nutritional Goals BEE in Kcals: Using Current wt Calories/Kcals/Kg 25-30 Kcals Calculated 8014-2157 Protein: Using Current wt Protein g/k.0-1.2 Protein Calculated 80-95 Fluid: ml 3862-6011 ml (25-30 ml/kg) Nutritional Problem 1. Problem Problem Altered nutrition related labs Etiology r/t possible high fat intake/ family Hx Signs/Symptoms: aeb labs (07/20) Triglycerides 349, HDL 35. Malnutrition Related to Morbid Obesity Malnutrition related to morbid obesity No Intervention/Recommendation Comments 1. Recommend diet changed to Cardiac d/t labs (07/20) Triglycerides 349, HDL 2. Nurse to encourage fluid intake to reduce risk for constipation d/t pt Hx chronic constipation. Expected Outcomes/Goals Expected Outcomes/Goals 1. PO intake to continue to meet >75% of estimated nutritional needs. 2. Monitor PO intake, wt, nutrition related labs, and skin integrity to trend WNL. 3. F/U as low risk in 7-10 days, 07/28-07/31
[2019-07-25] MEDS: Betamethasone/Clotrimazole Cream 15 gm Tube TP SCH ×2 (09:10→17:06)
[2019-07-25] MEDS: Multivitamin Tab PO SCH (09:11)
--- NOTE | 2019-07-25 19:08 | General Progress Note ---
Subjective - Review of Systems Service Date: 07/25/19 Subjective: resting comfortably no distress Objective - Physical Exam Vitals and I&O: Vital Signs Temp 98.6 F 07/25/19 14:00 Pulse 68 07/25/19 14:00 Resp 19 07/25/19 14:00 BP 118/74 07/25/19 14:00 Pulse Ox 98 07/25/19 14:00 Intake & Output 07/25/19 07/25/19 07/26/19 06:59 18:59 06:59 Intake Total 720 1200 Balance 720 1200 Intake: Oral 720 1200 Other: # Voids 1 3 # Bowel Movements 1 0 Active Medications: Current Medications Acetaminophen (Tylenol) 650 mg PO Q4HR PRN PRN Reason: Mild Pain (Scale 1-3) Stop: 09/15/19 18:53 Acetaminophen (Tylenol) 650 mg PO Q4H PRN PRN Reason: TEMP ABOVE 100 Stop: 09/18/19 14:41 Al Hydrox/Mg Hydrox/Simethicone (Maalox) 30 ml PO Q4HR PRN PRN Reason: GI DISTRESS Stop: 09/15/19 18:53 Betamethasone/Clotrimazole (Lotrisone Cream) 1 appl TP BID [facility] Stop: 09/22/19 14:59 Last Admin: 07/25/19 17:06 Dose: 1 appl Divalproex Sodium (Depakote Dr) 500 mg PO DAILY [facility]; Protocol Stop: 09/16/19 08:59 Last Admin: 07/25/19 09:11 Dose: 500 mg Divalproex Sodium (Depakote Dr) 1,000 mg PO HS [facility]; Protocol Stop: 09/18/19 20:59 Last Admin: 07/24/19 20:40 Dose: 1,000 mg Docusate Sodium (Colace) 250 mg PO DAILY [facility] Stop: 09/16/19 08:59 Last Admin: 07/25/19 09:10 Dose: 250 mg Haloperidol (Haldol) 1 mg PO BID [facility]; Protocol Stop: 09/20/19 16:59 Last Admin: 07/25/19 17:06 Dose: 1 mg Lorazepam (Ativan) 0.5 mg PO Q4HR PRN; Protocol PRN Reason: Anxiety/Agitation Stop: 08/16/19 20:24 Last Admin: 07/22/19 20:32 Dose: 0.5 mg Multivitamins/Vitamin C (Theragran) 1 tab PO DAILY [facility] Stop: 09/16/19 08:59 Last Admin: 07/25/19 09:11 Dose: 1 tab Risperidone (Risperdal) 3 mg PO BID [facility]; Protocol Stop: 09/20/19 08:59 Last Admin: 07/25/19 17:06 Dose: 3 mg Trihexyphenidyl HCl (Artane) 5 mg PO BID [facility] Stop: 09/20/19 08:59 Last Admin: 07/25/19 17:06 Dose: 5 mg Zolpidem Tartrate (Ambien) 5 mg PO HS PRN PRN Reason: Insomnia Stop: 09/15/19 18:53 Last Admin: 07/22/19 21:59 Dose: 5 mg General: No acute distress HEENT: PERRLA Neck: Supple, JVD, Thyromegaly Cardiovascular: Regular rate, Normal S1, Normal S2 Lungs: Clear to auscultation Abdomen: Bowel sounds, Soft Assessment/Plan - Assessment Assessment: 1.CELLULITES OF BOTH FEET 2.CHRONIC CONSTIPATION 3.CHRONIC SMOKING 4.PSYCHOSIS - Plan Plan: continue current treatment Nutritional Asmnt/Malnutr-PDOC - Dietary Evaluation Malnutrition Findings (Please click <Entered> for more info): Nutritional Asmnt/Malnutrition Start: 07/21/19 15: 52 Text: Status: Complete Freq: Protocol: Document 07/21/19 15:52 FAYE (Rec: 07/21/19 15:57 [email or web address] [id number]) Nutritional Asmnt/Malnutrition Patient General Information Nutritional Screening Low Risk Diagnosis Psychosis Pertinent Medical Hx/Surgical Hx Chronic smoking, Chronic constipation, Psychosis Subjective Information Consult: Wound to LT Dorsal Foot, redness to both feet Pt is a 69-year-old male admitted on 07/17 d/t psychosis. Pt is eating an estimated 100% of meals since admit date Per Meal/Nutrition Activity Record. Dietary is currently providing an estimated 2400 kcals and 90 gm Pro, to meet 100% kcal and 100% Pro needs. Per wound care note (07/17), Intrinsic factors that delay wound healing: Vasoconstriction effects from smoking. Extrinsic factors that delay wound healing: Decreased mobility. Both feet present with Mild non-pitting edema. Pt is meeting estimated nutritional needs-adequate to support wound healing. Recommend Nurse to encourage fluid intake to reduce risk for constipation d/t pt Hx chronic constipation. Recommend diet changed to Cardiac d/t labs (07/20) Triglycerides 349, HDL 35. Spoke with RN, Alley concerning recommendation for MD. Anthropometrics HT: 59 WT: 175 LB (79.55 kg) BMI: 25.84 (Overweight) GI/ Skin Integrity GI: WNL, Soft, Non-tender, Round BM: 07/19 x1 I/O: 1840/Not Noted Skin: Area of concern, reddened, erythema Wound: cellulitis of both feet , wound to LT dorsal foot Elijah: 18 Diet Order: Regular Estimated Energy Needs: ( Geriatric, CBW) 4347-4148 kcals (25-30 kcals/ kg) 80-95g Pro (1.0-1.2 g/kg) 4964-8577 ml (25-30 ml/kg) Current Diet Order/ Nutrition Support Regular Pertinent Medications Maalox (PRN), Colace, Theragran Pertinent Labs 07/20: Triglycerides 349, HDL 35 07/17: Glucose 100, Na 131 Nutritional Hx/Data Height 1.75 m Height (Calculated Centimeters) 175.3 Current Weight (lbs) 79.379 kg Weight (Calculated Kilograms) 79.4 Weight (Calculated Grams) 69980.7 [place] Body Weight 160 Lb (72.73 kg) % [place] Body Weight 109 Body Mass Index (BMI) 25.8 Weight Status Overweight GI Symptoms Skin Integrity/Comment: Skin: Area of concern, reddened, erythema Wound: cellulitis of both feet , wound to LT dorsal foot Elijah: 18 Per wound care note (07/17), Intrinsic factors that delay wound healing: Vasoconstriction effects from smoking. Extrinsic factors that delay wound healing: Decreased mobility. Both feet present with Mild non- pitting edema. Pt is meeting estimated nutritional needs- adequate to support wound healing. Current %PO Good (75-100%) Estimated Nutritional Goals BEE in Kcals: Using Current wt Calories/Kcals/Kg 25-30 Kcals Calculated 4895-4482 Protein: Using Current wt Protein g/k.0-1.2 Protein Calculated 80-95 Fluid: ml 9129-2545 ml (25-30 ml/kg) Nutritional Problem 1. Problem Problem Altered nutrition related labs Etiology r/t possible high fat intake/ family Hx Signs/Symptoms: aeb labs (07/20) Triglycerides 349, HDL 35. Malnutrition Related to Morbid Obesity Malnutrition related to morbid obesity No Intervention/Recommendation Comments 1. Recommend diet changed to Cardiac d/t labs (07/20) Triglycerides 349, HDL 2. Nurse to encourage fluid intake to reduce risk for constipation d/t pt Hx chronic constipation. Expected Outcomes/Goals Expected Outcomes/Goals 1. PO intake to continue to meet >75% of estimated nutritional needs. 2. Monitor PO intake, wt, nutrition related labs, and skin integrity to trend WNL. 3. F/U as low risk in 7-10 days, 07/28-07/31
[2019-07-26] MEDS: Multivitamin Tab PO SCH (08:56)
[2019-07-26] MEDS: Betamethasone/Clotrimazole Cream 15 gm Tube TP SCH ×2 (08:56→16:28)
--- NOTE | 2019-07-26 15:49 | General Progress Note ---
Subjective - Review of Systems Service Date: 07/26/19 Subjective: resting comfortably no distress Objective - Physical Exam Vitals and I&O: Vital Signs Temp 98.8 F 07/26/19 14:00 Pulse 76 07/26/19 14:00 Resp 19 07/26/19 14:00 BP 118/73 07/26/19 14:00 Pulse Ox 98 07/26/19 14:00 Intake & Output 07/25/19 07/26/19 07/26/19 18:59 06:59 18:59 Intake Total 1200 240 Balance 1200 240 Intake: Oral 1200 240 Other: # Voids 3 2 # Bowel Movements 0 1 Active Medications: Current Medications Acetaminophen (Tylenol) 650 mg PO Q4HR PRN PRN Reason: Mild Pain (Scale 1-3) Stop: 09/15/19 18:53 Acetaminophen (Tylenol) 650 mg PO Q4H PRN PRN Reason: TEMP ABOVE 100 Stop: 09/18/19 14:41 Al Hydrox/Mg Hydrox/Simethicone (Maalox) 30 ml PO Q4HR PRN PRN Reason: GI DISTRESS Stop: 09/15/19 18:53 Betamethasone/Clotrimazole (Lotrisone Cream) 1 appl TP BID [facility] Stop: 09/22/19 14:59 Last Admin: 07/26/19 08:56 Dose: 1 appl Divalproex Sodium (Depakote Dr) 500 mg PO DAILY [facility]; Protocol Stop: 09/16/19 08:59 Last Admin: 07/26/19 08:57 Dose: 500 mg Divalproex Sodium (Depakote Dr) 1,000 mg PO HS [facility]; Protocol Stop: 09/18/19 20:59 Last Admin: 07/25/19 20:58 Dose: 1,000 mg Docusate Sodium (Colace) 250 mg PO DAILY [facility] Stop: 09/16/19 08:59 Last Admin: 07/26/19 08:56 Dose: 250 mg Haloperidol (Haldol) 1 mg PO BID [facility]; Protocol Stop: 09/20/19 16:59 Last Admin: 07/26/19 08:57 Dose: 1 mg Lorazepam (Ativan) 0.5 mg PO Q4HR PRN; Protocol PRN Reason: Anxiety/Agitation Stop: 08/16/19 20:24 Last Admin: 07/22/19 20:32 Dose: 0.5 mg Multivitamins/Vitamin C (Theragran) 1 tab PO DAILY [facility] Stop: 09/16/19 08:59 Last Admin: 07/26/19 08:56 Dose: 1 tab Risperidone (Risperdal) 3 mg PO BID [facility]; Protocol Stop: 09/20/19 08:59 Last Admin: 07/26/19 08:56 Dose: 3 mg Trihexyphenidyl HCl (Artane) 5 mg PO BID [facility] Stop: 09/20/19 08:59 Last Admin: 07/26/19 08:56 Dose: 5 mg Zolpidem Tartrate (Ambien) 5 mg PO HS PRN PRN Reason: Insomnia Stop: 09/15/19 18:53 Last Admin: 07/22/19 21:59 Dose: 5 mg General: No acute distress HEENT: PERRLA Neck: Supple, JVD, Thyromegaly Cardiovascular: Regular rate, Normal S1, Normal S2 Lungs: Clear to auscultation Abdomen: Bowel sounds, Soft Assessment/Plan - Assessment Assessment: 1.CELLULITES OF BOTH FEET 2.CHRONIC CONSTIPATION 3.CHRONIC SMOKING 4.PSYCHOSIS - Plan Plan: continue current treatment Nutritional Asmnt/Malnutr-PDOC - Dietary Evaluation Malnutrition Findings (Please click <Entered> for more info): Nutritional Asmnt/Malnutrition Start: 07/21/19 15: 52 Text: Status: Complete Freq: Protocol: Document 07/21/19 15:52 FAYE (Rec: 07/21/19 15:57 FAYE [id number]) Nutritional Asmnt/Malnutrition Patient General Information Nutritional Screening Low Risk Diagnosis Psychosis Pertinent Medical Hx/Surgical Hx Chronic smoking, Chronic constipation, Psychosis Subjective Information Consult: Wound to LT Dorsal Foot, redness to both feet Pt is a 69-year-old male admitted on 07/17 d/t psychosis. Pt is eating an estimated 100% of meals since admit date Per Meal/Nutrition Activity Record. Dietary is currently providing an estimated 2400 kcals and 90 gm Pro, to meet 100% kcal and 100% Pro needs. Per wound care note (07/17), Intrinsic factors that delay wound healing: Vasoconstriction effects from smoking. Extrinsic factors that delay wound healing: Decreased mobility. Both feet present with Mild non-pitting edema. Pt is meeting estimated nutritional needs-adequate to support wound healing. Recommend Nurse to encourage fluid intake to reduce risk for constipation d/t pt Hx chronic constipation. Recommend diet changed to Cardiac d/t labs (07/20) Triglycerides 349, HDL 35. Spoke with RN, Alley concerning recommendation for MD. Anthropometrics HT: 59 WT: 175 LB (79.55 kg) BMI: 25.84 (Overweight) GI/ Skin Integrity GI: WNL, Soft, Non-tender, Round BM: 07/19 x1 I/O: 1840/Not Noted Skin: Area of concern, reddened, erythema Wound: cellulitis of both feet , wound to LT dorsal foot Elijah: 18 Diet Order: Regular Estimated Energy Needs: ( Geriatric, CBW) 4419-2581 kcals (25-30 kcals/ kg) 80-95g Pro (1.0-1.2 g/kg) 7849-0213 ml (25-30 ml/kg) Current Diet Order/ Nutrition Support Regular Pertinent Medications Maalox (PRN), Colace, Theragran Pertinent Labs 07/20: Triglycerides 349, HDL 35 07/17: Glucose 100, Na 131 Nutritional Hx/Data Height 1.75 m Height (Calculated Centimeters) 175.3 Current Weight (lbs) 79.379 kg Weight (Calculated Kilograms) 79.4 Weight (Calculated Grams) 78525.7 [place] Body Weight 160 Lb (72.73 kg) % [place] Body Weight 109 Body Mass Index (BMI) 25.8 Weight Status Overweight GI Symptoms Skin Integrity/Comment: Skin: Area of concern, reddened, erythema Wound: cellulitis of both feet , wound to LT dorsal foot Elijah: 18 Per wound care note (07/17), Intrinsic factors that delay wound healing: Vasoconstriction effects from smoking. Extrinsic factors that delay wound healing: Decreased mobility. Both feet present with Mild non- pitting edema. Pt is meeting estimated nutritional needs- adequate to support wound healing. Current %PO Good (75-100%) Estimated Nutritional Goals BEE in Kcals: Using Current wt Calories/Kcals/Kg 25-30 Kcals Calculated 9755-4907 Protein: Using Current wt Protein g/k.0-1.2 Protein Calculated 80-95 Fluid: ml 4174-8591 ml (25-30 ml/kg) Nutritional Problem 1. Problem Problem Altered nutrition related labs Etiology r/t possible high fat intake/ family Hx Signs/Symptoms: aeb labs (07/20) Triglycerides 349, HDL 35. Malnutrition Related to Morbid Obesity Malnutrition related to morbid obesity No Intervention/Recommendation Comments 1. Recommend diet changed to Cardiac d/t labs (07/20) Triglycerides 349, HDL 2. Nurse to encourage fluid intake to reduce risk for constipation d/t pt Hx chronic constipation. Expected Outcomes/Goals Expected Outcomes/Goals 1. PO intake to continue to meet >75% of estimated nutritional needs. 2. Monitor PO intake, wt, nutrition related labs, and skin integrity to trend WNL. 3. F/U as low risk in 7-10 days, 07/28-07/31
--- NOTE | 2019-07-26 17:07 | Progress Notes ---
DATE: 07/24/2019 SUBJECTIVE: Chart reviewed and patient interviewed. Also discussed the patient's condition with the staff and reviewed records and labs. The patient is still threatening and still has loud tone of voice and angry and aggressive attitude. The patient also is demanding. The patient also continued to have severe mood swings and is still easily irritable and easily agitated. Otherwise, patient continued to comply with taking his medications with no side effects of medications. ASSESSMENT: The patient is still aggressive and still can be dangerous to others. TREATMENT PLAN: Continue Risperdal in a dose of 3 mg twice a day and Haldol was decreased to 1 mg twice a day. Also, continue to monitor behavior closely and continue to follow up. [facility]# [id number]
--- NOTE | 2019-07-27 03:01 | Psych Progress Note ---
Psych Progress Note - Intro Date of Progress Note: 07/25/19 - Assessment Assessment: Patient interviewed, case discussed with staff, chart and records were reviewed. Patient is irritable and angry. He shouts at this provider "I'm fine !" Not willing to cooperate with interview, getting more irritable as interview proceeds. Interview terminated due to escalating behavior. NO med side effects noted. - Vitals, I&O Vitals: Vital Signs - 24 hr 07/26/19 07/26/19 07/26/19 06:14 08:00 14:00 Temp 98.0 F 98.8 F HR 72 76 RR 20 18 19 BP 137/82 118/73 O2 Sat % 95 98 07/26/19 20:25 Temp 98.2 F HR 71 RR 18 BP 140/74 O2 Sat % 94 - Objective Psych Objective: anxious, irritalbe, uncooperative, loud speech, A&O x 2, insight is poor, LYDIA SI /HI remains internally pre-occupied. loose thinking. - Plan Plan: cont meds - Review of Relevant Data Review of Relevant Data: I have reviewed the following items and time gavin (where applicable) has been applied. - Medications Current Medications: Current Medications Acetaminophen (Tylenol) 650 mg PO Q4HR PRN PRN Reason: Mild Pain (Scale 1-3) Stop: 09/15/19 18:53 Acetaminophen (Tylenol) 650 mg PO Q4H PRN PRN Reason: TEMP ABOVE 100 Stop: 09/18/19 14:41 Al Hydrox/Mg Hydrox/Simethicone (Maalox) 30 ml PO Q4HR PRN PRN Reason: GI DISTRESS Stop: 09/15/19 18:53 Betamethasone/Clotrimazole (Lotrisone Cream) 1 appl TP BID [facility] Stop: 09/22/19 14:59 Last Admin: 07/26/19 16:28 Dose: 1 appl Divalproex Sodium (Depakote Dr) 500 mg PO DAILY [facility]; Protocol Stop: 09/16/19 08:59 Last Admin: 07/26/19 08:57 Dose: 500 mg Divalproex Sodium (Depakote Dr) 1,000 mg PO HS [facility]; Protocol Stop: 09/18/19 20:59 Last Admin: 07/26/19 20:51 Dose: 1,000 mg Docusate Sodium (Colace) 250 mg PO DAILY [facility] Stop: 09/16/19 08:59 Last Admin: 07/26/19 08:56 Dose: 250 mg Haloperidol (Haldol) 1 mg PO BID [facility]; Protocol Stop: 09/20/19 16:59 Last Admin: 07/26/19 16:28 Dose: 1 mg Lorazepam (Ativan) 0.5 mg PO Q4HR PRN; Protocol PRN Reason: Anxiety/Agitation Stop: 08/16/19 20:24 Last Admin: 07/22/19 20:32 Dose: 0.5 mg Multivitamins/Vitamin C (Theragran) 1 tab PO DAILY [facility] Stop: 09/16/19 08:59 Last Admin: 07/26/19 08:56 Dose: 1 tab Risperidone (Risperdal) 3 mg PO BID [facility]; Protocol Stop: 09/20/19 08:59 Last Admin: 07/26/19 16:28 Dose: 3 mg Trihexyphenidyl HCl (Artane) 5 mg PO BID [facility] Stop: 09/20/19 08:59 Last Admin: 07/26/19 16:28 Dose: 5 mg Zolpidem Tartrate (Ambien) 5 mg PO HS PRN PRN Reason: Insomnia Stop: 09/15/19 18:53 Last Admin: 07/22/19 21:59 Dose: 5 mg
--- NOTE | 2019-07-27 03:03 | Psych Progress Note ---
Psych Progress Note - Intro Date of Progress Note: 07/26/19 - Assessment Assessment: Patient interviewed, case discussed with staff, chart and records were reviewed. Patient is in bed and uncooperative largely with interview. When asked about his plan for self care he reports "no don't discharge me I don't have a place to live!" He then becomes angry and interview was terminated at that point. No med side effects noted. - Vitals, I&O Vitals: Vital Signs - 24 hr 07/26/19 07/26/19 07/26/19 06:14 08:00 14:00 Temp 98.0 F 98.8 F HR 72 76 RR 20 18 19 BP 137/82 118/73 O2 Sat % 95 98 07/26/19 20:25 Temp 98.2 F HR 71 RR 18 BP 140/74 O2 Sat % 94 - Objective Psych Objective: anxious, irritalbe, uncooperative, loud speech, A&O x 2, insight is poor, LYDIA SI /HI remains internally pre-occupied. loose thinking. - Plan Plan: cont meds - Review of Relevant Data Review of Relevant Data: I have reviewed the following items and time gavin (where applicable) has been applied. - Medications Current Medications: Current Medications Acetaminophen (Tylenol) 650 mg PO Q4HR PRN PRN Reason: Mild Pain (Scale 1-3) Stop: 09/15/19 18:53 Acetaminophen (Tylenol) 650 mg PO Q4H PRN PRN Reason: TEMP ABOVE 100 Stop: 09/18/19 14:41 Al Hydrox/Mg Hydrox/Simethicone (Maalox) 30 ml PO Q4HR PRN PRN Reason: GI DISTRESS Stop: 09/15/19 18:53 Betamethasone/Clotrimazole (Lotrisone Cream) 1 appl TP BID [facility] Stop: 09/22/19 14:59 Last Admin: 07/26/19 16:28 Dose: 1 appl Divalproex Sodium (Depakote Dr) 500 mg PO DAILY [facility]; Protocol Stop: 09/16/19 08:59 Last Admin: 07/26/19 08:57 Dose: 500 mg Divalproex Sodium (Depakote Dr) 1,000 mg PO HS [facility]; Protocol Stop: 09/18/19 20:59 Last Admin: 07/26/19 20:51 Dose: 1,000 mg Docusate Sodium (Colace) 250 mg PO DAILY [facility] Stop: 09/16/19 08:59 Last Admin: 07/26/19 08:56 Dose: 250 mg Haloperidol (Haldol) 1 mg PO BID [facility]; Protocol Stop: 09/20/19 16:59 Last Admin: 07/26/19 16:28 Dose: 1 mg Lorazepam (Ativan) 0.5 mg PO Q4HR PRN; Protocol PRN Reason: Anxiety/Agitation Stop: 08/16/19 20:24 Last Admin: 07/22/19 20:32 Dose: 0.5 mg Multivitamins/Vitamin C (Theragran) 1 tab PO DAILY [facility] Stop: 09/16/19 08:59 Last Admin: 07/26/19 08:56 Dose: 1 tab Risperidone (Risperdal) 3 mg PO BID [facility]; Protocol Stop: 09/20/19 08:59 Last Admin: 07/26/19 16:28 Dose: 3 mg Trihexyphenidyl HCl (Artane) 5 mg PO BID [facility] Stop: 09/20/19 08:59 Last Admin: 07/26/19 16:28 Dose: 5 mg Zolpidem Tartrate (Ambien) 5 mg PO HS PRN PRN Reason: Insomnia Stop: 09/15/19 18:53 Last Admin: 07/22/19 21:59 Dose: 5 mg
[2019-07-27] MEDS: Betamethasone/Clotrimazole Cream 15 gm Tube TP SCH ×2 (08:31→17:06)
[2019-07-27] MEDS: Multivitamin Tab PO SCH (08:32)
--- NOTE | 2019-07-27 17:25 | Internal Medicine Prog Note ---
Internal Medicine Subjective - Subjective Service Date: 07/27/19 Patient seen and examined:: without staff (HE IS DOING BETTER) Patient is:: awake, verbal, in bed, talking, confused Per staff patient has:: no adverse event Internal Medicine Objective - Physical Exam Vitals and I&O: Vital Signs Temp 98.2 F 07/27/19 06:35 Pulse 62 07/27/19 06:35 Resp 20 07/27/19 06:35 BP 127/75 07/27/19 06:35 Pulse Ox 97 07/27/19 06:35 Intake & Output 07/26/19 07/27/19 07/27/19 18:59 06:59 18:59 Intake Total 1300 720 Balance 1300 720 Intake: Oral 1300 720 Other: # Voids 1 # Bowel Movements 1 1 Stool Characteristics Soft Active Medications: Current Medications Acetaminophen (Tylenol) 650 mg PO Q4HR PRN PRN Reason: Mild Pain (Scale 1-3) Stop: 09/15/19 18:53 Acetaminophen (Tylenol) 650 mg PO Q4H PRN PRN Reason: TEMP ABOVE 100 Stop: 09/18/19 14:41 Al Hydrox/Mg Hydrox/Simethicone (Maalox) 30 ml PO Q4HR PRN PRN Reason: GI DISTRESS Stop: 09/15/19 18:53 Betamethasone/Clotrimazole (Lotrisone Cream) 1 appl TP BID ROSA Stop: 09/22/19 14:59 Last Admin: 07/27/19 17:06 Dose: 1 appl Divalproex Sodium (Depakote Dr) 500 mg PO DAILY ROSA; Protocol Stop: 09/16/19 08:59 Last Admin: 07/27/19 08:32 Dose: 500 mg Divalproex Sodium (Depakote Dr) 1,000 mg PO HS ROSA; Protocol Stop: 09/18/19 20:59 Last Admin: 07/26/19 20:51 Dose: 1,000 mg Docusate Sodium (Colace) 250 mg PO DAILY ROSA Stop: 09/16/19 08:59 Last Admin: 07/27/19 08:32 Dose: 250 mg Haloperidol (Haldol) 1 mg PO BID ROSA; Protocol Stop: 09/20/19 16:59 Last Admin: 07/27/19 16:32 Dose: 1 mg Lorazepam (Ativan) 0.5 mg PO Q4HR PRN; Protocol PRN Reason: Anxiety/Agitation Stop: 08/16/19 20:24 Last Admin: 07/22/19 20:32 Dose: 0.5 mg Multivitamins/Vitamin C (Theragran) 1 tab PO DAILY ROSA Stop: 09/16/19 08:59 Last Admin: 07/27/19 08:32 Dose: 1 tab Risperidone (Risperdal) 3 mg PO BID ROSA; Protocol Stop: 09/20/19 08:59 Last Admin: 07/27/19 16:32 Dose: 3 mg Trihexyphenidyl HCl (Artane) 5 mg PO BID ROSA Stop: 09/20/19 08:59 Last Admin: 07/27/19 16:32 Dose: 5 mg Zolpidem Tartrate (Ambien) 5 mg PO HS PRN PRN Reason: Insomnia Stop: 09/15/19 18:53 Last Admin: 07/22/19 21:59 Dose: 5 mg General: alert HEENT: NC/AT, PERRLA, EOMI, anicteric sclerae, throat clear Neck: Supple, No JVD, No thyromegaly, +2 carotid pulse wo bruit, No LAD Lungs: CTAB Cardiovascular: RRR, Normal S1, Normal S2, without murmur Abdomen: soft, non-tender, non-distended Extremities: rash (OVER BOTH FEET), other (THE SKIN OF BOTH FEETS ARE IMPROVING) Neurological: no change Internal Medicine Assmt/Plan - Assessment Assessment: 1.CELLULITES OF BOTH FEET 2.CHRONIC CONSTIPATION 3.CHRONIC SMOKING 4.PSYCHOSIS - Plan Plan: CONTINUE ON CURRENT MEDICATION AND DIET. Nutritional Asmnt/Malnutr-PDOC - Dietary Evaluation Malnutrition Findings (Please click <Entered> for more info): Nutritional Asmnt/Malnutrition Start: 07/21/19 15: 52 Text: Status: Complete Freq: Protocol: Document 07/21/19 15:52 FAYE (Rec: 07/21/19 15:57 [email or web address]) Nutritional Asmnt/Malnutrition Patient General Information Nutritional Screening Low Risk Diagnosis Psychosis Pertinent Medical Hx/Surgical Hx Chronic smoking, Chronic constipation, Psychosis Subjective Information Consult: Wound to LT Dorsal Foot, redness to both feet Pt is a 69-year-old male admitted on 07/17 d/t psychosis. Pt is eating an estimated 100% of meals since admit date Per Meal/Nutrition Activity Record. Dietary is currently providing an estimated 2400 kcals and 90 gm Pro, to meet 100% kcal and 100% Pro needs. Per wound care note (07/17), Intrinsic factors that delay wound healing: Vasoconstriction effects from smoking. Extrinsic factors that delay wound healing: Decreased mobility. Both feet present with Mild non-pitting edema. Pt is meeting estimated nutritional needs-adequate to support wound healing. Recommend Nurse to encourage fluid intake to reduce risk for constipation d/t pt Hx chronic constipation. Recommend diet changed to Cardiac d/t labs (07/20) Triglycerides 349, HDL 35. Spoke with RN, Alley concerning recommendation for MD. Anthropometrics HT: 59 WT: 175 LB (79.55 kg) BMI: 25.84 (Overweight) GI/ Skin Integrity GI: WNL, Soft, Non-tender, Round BM: 07/19 x1 I/O: 1840/Not Noted Skin: Area of concern, reddened, erythema Wound: cellulitis of both feet , wound to LT dorsal foot Elijah: 18 Diet Order: Regular Estimated Energy Needs: ( Geriatric, CBW) 5589-2995 kcals (25-30 kcals/ kg) 80-95g Pro (1.0-1.2 g/kg) 5176-1807 ml (25-30 ml/kg) Current Diet Order/ Nutrition Support Regular Pertinent Medications Maalox (PRN), Colace, Theragran Pertinent Labs 07/20: Triglycerides 349, HDL 35 07/17: Glucose 100, Na 131 Nutritional Hx/Data Height 1.75 m Height (Calculated Centimeters) 175.3 Current Weight (lbs) 79.379 kg Weight (Calculated Kilograms) 79.4 Weight (Calculated Grams) 53112.7 [place] Body Weight 160 Lb (72.73 kg) % [place] Body Weight 109 Body Mass Index (BMI) 25.8 Weight Status Overweight GI Symptoms Skin Integrity/Comment: Skin: Area of concern, reddened, erythema Wound: cellulitis of both feet , wound to LT dorsal foot Elijah: 18 Per wound care note (07/17), Intrinsic factors that delay wound healing: Vasoconstriction effects from smoking. Extrinsic factors that delay wound healing: Decreased mobility. Both feet present with Mild non- pitting edema. Pt is meeting estimated nutritional needs- adequate to support wound healing. Current %PO Good (75-100%) Estimated Nutritional Goals BEE in Kcals: Using Current wt Calories/Kcals/Kg 25-30 Kcals Calculated 2015-2626 Protein: Using Current wt Protein g/k.0-1.2 Protein Calculated 80-95 Fluid: ml 3114-3143 ml (25-30 ml/kg) Nutritional Problem 1. Problem Problem Altered nutrition related labs Etiology r/t possible high fat intake/ family Hx Signs/Symptoms: aeb labs (07/20) Triglycerides 349, HDL 35. Malnutrition Related to Morbid Obesity Malnutrition related to morbid obesity No Intervention/Recommendation Comments 1. Recommend diet changed to Cardiac d/t labs (07/20) Triglycerides 349, HDL 2. Nurse to encourage fluid intake to reduce risk for constipation d/t pt Hx chronic constipation. Expected Outcomes/Goals Expected Outcomes/Goals 1. PO intake to continue to meet >75% of estimated nutritional needs. 2. Monitor PO intake, wt, nutrition related labs, and skin integrity to trend WNL. 3. F/U as low risk in 7-10 days, 07/28-07/31
--- NOTE | 2019-07-27 21:14 | Progress Notes ---
DATE: 07/27/2019 SUBJECTIVE: The patient in the hospital, had been pretty aggressive, coming in from [place] stating he does not want to go back to [place]; however, he does state that he wants to go back to a board and care. Dr. Arreguinrees seeing the patient over the weekend. Mostly in bed, not cooperative, does not want to leave. States "I can just live here forever." Concerns about grave disability. Concerns about his ability to really function at a lower level of care. We are trying to arrange a safe disposition for the patient. Medications were reviewed. He can still be angry, aggressive at times. No medication side effects. Continue dosing of Risperdal and Depakote. JOB# [id number]
[2019-07-28] MEDS: Betamethasone/Clotrimazole Cream 15 gm Tube TP SCH ×2 (08:54→16:15)
[2019-07-28] MEDS: Multivitamin Tab PO SCH (08:55)
[2019-07-28] MEDS: Eucerin Cream 16 oz Jar TP SCH (16:15)
--- NOTE | 2019-07-28 20:26 | Internal Medicine Prog Note ---
Internal Medicine Subjective - Subjective Service Date: 07/28/19 Patient seen and examined:: without staff (HE FEELS WELL) Patient is:: awake, verbal, in bed, talking, confused Per staff patient has:: no adverse event Internal Medicine Objective - Physical Exam Vitals and I&O: Vital Signs Temp 97.5 F 07/28/19 20:17 Pulse 64 07/28/19 20:17 Resp 20 07/28/19 20:17 BP 125/74 07/28/19 20:17 Pulse Ox 95 07/28/19 20:17 Intake & Output 07/28/19 07/28/19 07/29/19 06:59 18:59 06:59 Intake Total 240 1400 240 Balance 240 1400 240 Intake: Oral 240 1400 240 Other: # Voids 2 4 2 # Bowel Movements 1 Stool Characteristics Soft Active Medications: Current Medications Acetaminophen (Tylenol) 650 mg PO Q4HR PRN PRN Reason: Mild Pain (Scale 1-3) Stop: 09/15/19 18:53 Acetaminophen (Tylenol) 650 mg PO Q4H PRN PRN Reason: TEMP ABOVE 100 Stop: 09/18/19 14:41 Al Hydrox/Mg Hydrox/Simethicone (Maalox) 30 ml PO Q4HR PRN PRN Reason: GI DISTRESS Stop: 09/15/19 18:53 Betamethasone/Clotrimazole (Lotrisone Cream) 1 appl TP BID ROSA Stop: 09/22/19 14:59 Last Admin: 07/28/19 16:15 Dose: 1 appl Divalproex Sodium (Depakote Dr) 500 mg PO DAILY ROSA; Protocol Stop: 09/16/19 08:59 Last Admin: 07/28/19 08:55 Dose: 500 mg Divalproex Sodium (Depakote Dr) 1,000 mg PO HS ROSA; Protocol Stop: 09/18/19 20:59 Last Admin: 07/28/19 20:10 Dose: 1,000 mg Docusate Sodium (Colace) 250 mg PO DAILY ROSA Stop: 09/16/19 08:59 Last Admin: 07/28/19 08:55 Dose: 250 mg Haloperidol (Haldol) 1 mg PO BID ROSA; Protocol Stop: 09/20/19 16:59 Last Admin: 07/28/19 16:15 Dose: 1 mg Lorazepam (Ativan) 0.5 mg PO Q4HR PRN; Protocol PRN Reason: Anxiety/Agitation Stop: 08/16/19 20:24 Last Admin: 07/22/19 20:32 Dose: 0.5 mg Multi-Ingredient Cream (Eucerin Cream) 1 appl TP BID ROSA Stop: 09/26/19 16:59 Last Admin: 07/28/19 16:15 Dose: 1 appl Multivitamins/Vitamin C (Theragran) 1 tab PO DAILY ROSA Stop: 09/16/19 08:59 Last Admin: 07/28/19 08:55 Dose: 1 tab Risperidone (Risperdal) 3 mg PO BID ROSA; Protocol Stop: 09/20/19 08:59 Last Admin: 07/28/19 16:15 Dose: 3 mg Trihexyphenidyl HCl (Artane) 5 mg PO BID ROSA Stop: 09/20/19 08:59 Last Admin: 07/28/19 16:15 Dose: 5 mg Zolpidem Tartrate (Ambien) 5 mg PO HS PRN PRN Reason: Insomnia Stop: 09/15/19 18:53 Last Admin: 07/22/19 21:59 Dose: 5 mg General: alert HEENT: NC/AT, PERRLA, EOMI, anicteric sclerae, throat clear Neck: Supple, No JVD, No thyromegaly, +2 carotid pulse wo bruit, No LAD Lungs: CTAB Cardiovascular: RRR, Normal S1, Normal S2, without murmur Abdomen: soft, non-tender, non-distended Extremities: rash (OVER BOTH FEET), other (THE SKIN OF BOTH FEETS ARE IMPROVING) Neurological: no change Internal Medicine Assmt/Plan - Assessment Assessment: 1.CELLULITES OF BOTH FEET 2.CHRONIC CONSTIPATION 3.CHRONIC SMOKING 4.PSYCHOSIS - Plan Plan: CONTINUE ON CURRENT MEDICATION AND DIET. Nutritional Asmnt/Malnutr-PDOC - Dietary Evaluation Malnutrition Findings (Please click <Entered> for more info): Nutritional Asmnt/Malnutrition Start: 07/21/19 15: 52 Text: Status: Complete Freq: Protocol: Document 07/21/19 15:52 FAYE (Rec: 07/21/19 15:57 FAYE [id number]) Nutritional Asmnt/Malnutrition Patient General Information Nutritional Screening Low Risk Diagnosis Psychosis Pertinent Medical Hx/Surgical Hx Chronic smoking, Chronic constipation, Psychosis Subjective Information Consult: Wound to LT Dorsal Foot, redness to both feet Pt is a 69-year-old male admitted on 07/17 d/t psychosis. Pt is eating an estimated 100% of meals since admit date Per Meal/Nutrition Activity Record. Dietary is currently providing an estimated 2400 kcals and 90 gm Pro, to meet 100% kcal and 100% Pro needs. Per wound care note (07/17), Intrinsic factors that delay wound healing: Vasoconstriction effects from smoking. Extrinsic factors that delay wound healing: Decreased mobility. Both feet present with Mild non-pitting edema. Pt is meeting estimated nutritional needs-adequate to support wound healing. Recommend Nurse to encourage fluid intake to reduce risk for constipation d/t pt Hx chronic constipation. Recommend diet changed to Cardiac d/t labs (07/20) Triglycerides 349, HDL 35. Spoke with RNAlley concerning recommendation for MD. Anthropometrics HT: 59 WT: 175 LB (79.55 kg) BMI: 25.84 (Overweight) GI/ Skin Integrity GI: WNL, Soft, Non-tender, Round BM: 07/19 x1 I/O: 1840/Not Noted Skin: Area of concern, reddened, erythema Wound: cellulitis of both feet , wound to LT dorsal foot Elijah: 18 Diet Order: Regular Estimated Energy Needs: ( Geriatric, CBW) 5222-6582 kcals (25-30 kcals/ kg) 80-95g Pro (1.0-1.2 g/kg) 8827-2202 ml (25-30 ml/kg) Current Diet Order/ Nutrition Support Regular Pertinent Medications Maalox (PRN), Colace, Theragran Pertinent Labs 07/20: Triglycerides 349, HDL 35 07/17: Glucose 100, Na 131 Nutritional Hx/Data Height 1.75 m Height (Calculated Centimeters) 175.3 Current Weight (lbs) 79.379 kg Weight (Calculated Kilograms) 79.4 Weight (Calculated Grams) 41745.7 [place] Body Weight 160 Lb (72.73 kg) % [place] Body Weight 109 Body Mass Index (BMI) 25.8 Weight Status Overweight GI Symptoms Skin Integrity/Comment: Skin: Area of concern, reddened, erythema Wound: cellulitis of both feet , wound to LT dorsal foot Elijah: 18 Per wound care note (07/17), Intrinsic factors that delay wound healing: Vasoconstriction effects from smoking. Extrinsic factors that delay wound healing: Decreased mobility. Both feet present with Mild non- pitting edema. Pt is meeting estimated nutritional needs- adequate to support wound healing. Current %PO Good (75-100%) Estimated Nutritional Goals BEE in Kcals: Using Current wt Calories/Kcals/Kg 25-30 Kcals Calculated 7180-9439 Protein: Using Current wt Protein g/k.0-1.2 Protein Calculated 80-95 Fluid: ml 8089-5666 ml (25-30 ml/kg) Nutritional Problem 1. Problem Problem Altered nutrition related labs Etiology r/t possible high fat intake/ family Hx Signs/Symptoms: aeb labs (07/20) Triglycerides 349, HDL 35. Malnutrition Related to Morbid Obesity Malnutrition related to morbid obesity No Intervention/Recommendation Comments 1. Recommend diet changed to Cardiac d/t labs (07/20) Triglycerides 349, HDL 2. Nurse to encourage fluid intake to reduce risk for constipation d/t pt Hx chronic constipation. Expected Outcomes/Goals Expected Outcomes/Goals 1. PO intake to continue to meet >75% of estimated nutritional needs. 2. Monitor PO intake, wt, nutrition related labs, and skin integrity to trend WNL. 3. F/U as low risk in 7-10 days, 07/28-07/31
--- NOTE | 2019-07-28 21:05 | Progress Notes ---
DATE: 07/28/2019 SUBJECTIVE: Chart was reviewed and the patient interviewed. Also discussed the patient's condition with the staff and reviewed records and labs. The patient is still suspicious and is still easily agitated. The patient also is still demanding and is still verbally abusive to staff. The patient also is easily irritable and easily agitated. He also as discussed has severe mood swings. Otherwise, the patient is compliant with taking his medications with no side effects of medications. ASSESSMENT: The patient is still irritable and is still in an agitated mood. TREATMENT PLAN: Continue to monitor behavior and his condition closely and continue adjusting psychotropic medications and work on behavioral modification. JOB# [id number]
[2019-07-29] MEDS: Betamethasone/Clotrimazole Cream 15 gm Tube TP SCH ×2 (08:48→16:11)
[2019-07-29] MEDS: Multivitamin Tab PO SCH (08:48)
[2019-07-29] MEDS: Eucerin Cream 16 oz Jar TP SCH ×2 (08:48→16:11)
[2019-07-29] MEDS: risperiDONE 4 mg Tab PO SCH ×2 (08:49→16:11)
--- NOTE | 2019-07-29 17:45 | Internal Medicine Prog Note ---
Internal Medicine Subjective - Subjective Service Date: 07/29/19 Patient seen and examined:: without staff (THE PATIENT DOING WELL) Patient is:: awake, verbal, in bed, talking, confused Per staff patient has:: no adverse event Internal Medicine Objective - Physical Exam Vitals and I&O: Vital Signs Temp 97.6 F 07/29/19 14:00 Pulse 74 07/29/19 14:00 Resp 20 07/29/19 14:00 BP 130/76 07/29/19 14:00 Pulse Ox 97 07/29/19 14:00 Intake & Output 07/28/19 07/29/19 07/29/19 18:59 06:59 18:59 Intake Total 1400 240 Balance 1400 240 Intake: Oral 1400 240 Other: # Voids 4 3 # Bowel Movements 1 0 Active Medications: Current Medications Acetaminophen (Tylenol) 650 mg PO Q4HR PRN PRN Reason: Mild Pain (Scale 1-3) Stop: 09/15/19 18:53 Acetaminophen (Tylenol) 650 mg PO Q4H PRN PRN Reason: TEMP ABOVE 100 Stop: 09/18/19 14:41 Al Hydrox/Mg Hydrox/Simethicone (Maalox) 30 ml PO Q4HR PRN PRN Reason: GI DISTRESS Stop: 09/15/19 18:53 Betamethasone/Clotrimazole (Lotrisone Cream) 1 appl TP BID [facility] Stop: 09/22/19 14:59 Last Admin: 07/29/19 16:11 Dose: 1 appl Divalproex Sodium (Depakote Dr) 500 mg PO DAILY ROSA; Protocol Stop: 09/16/19 08:59 Last Admin: 07/29/19 08:49 Dose: 500 mg Divalproex Sodium (Depakote Dr) 1,000 mg PO HS ROSA; Protocol Stop: 09/18/19 20:59 Last Admin: 07/28/19 20:10 Dose: 1,000 mg Docusate Sodium (Colace) 250 mg PO DAILY ROSA Stop: 09/16/19 08:59 Last Admin: 07/29/19 08:49 Dose: 250 mg Lorazepam (Ativan) 0.5 mg PO Q4HR PRN; Protocol PRN Reason: Anxiety/Agitation Stop: 08/16/19 20:24 Last Admin: 07/22/19 20:32 Dose: 0.5 mg Multi-Ingredient Cream (Eucerin Cream) 1 appl TP BID [facility] Stop: 09/26/19 16:59 Last Admin: 07/29/19 16:11 Dose: 1 appl Multivitamins/Vitamin C (Theragran) 1 tab PO DAILY ROSA Stop: 09/16/19 08:59 Last Admin: 07/29/19 08:48 Dose: 1 tab Risperidone (Risperdal) 4 mg PO BID [facility]; Protocol Stop: 09/27/19 08:59 Last Admin: 07/29/19 16:11 Dose: 4 mg Trihexyphenidyl HCl (Artane) 5 mg PO BID [facility] Stop: 09/20/19 08:59 Last Admin: 07/29/19 16:11 Dose: 5 mg Zolpidem Tartrate (Ambien) 5 mg PO HS PRN PRN Reason: Insomnia Stop: 09/15/19 18:53 Last Admin: 07/29/19 00:44 Dose: 5 mg General: alert HEENT: NC/AT, PERRLA, EOMI, anicteric sclerae, throat clear Neck: Supple, No JVD, No thyromegaly, +2 carotid pulse wo bruit, No LAD Lungs: CTAB Cardiovascular: RRR, Normal S1, Normal S2, without murmur Abdomen: soft, non-tender, non-distended Extremities: rash (OVER BOTH FEET), other (THE SKIN OF BOTH FEETS ARE IMPROVING) Neurological: no change Internal Medicine Assmt/Plan - Assessment Assessment: 1.CELLULITES OF BOTH FEET 2.CHRONIC CONSTIPATION 3.CHRONIC SMOKING 4.PSYCHOSIS - Plan Plan: CONTINUE ON CURRENT MEDICATION AND DIET. Nutritional Asmnt/Malnutr-PDOC - Dietary Evaluation Malnutrition Findings (Please click <Entered> for more info): Nutritional Asmnt/Malnutrition Start: 07/21/19 15: 52 Text: Status: Complete Freq: Protocol: Document 07/21/19 15:52 FAYE (Rec: 07/21/19 15:57 [email or web address]) Nutritional Asmnt/Malnutrition Patient General Information Nutritional Screening Low Risk Diagnosis Psychosis Pertinent Medical Hx/Surgical Hx Chronic smoking, Chronic constipation, Psychosis Subjective Information Consult: Wound to LT Dorsal Foot, redness to both feet Pt is a 69-year-old male admitted on 07/17 d/t psychosis. Pt is eating an estimated 100% of meals since admit date Per Meal/Nutrition Activity Record. Dietary is currently providing an estimated 2400 kcals and 90 gm Pro, to meet 100% kcal and 100% Pro needs. Per wound care note (07/17), Intrinsic factors that delay wound healing: Vasoconstriction effects from smoking. Extrinsic factors that delay wound healing: Decreased mobility. Both feet present with Mild non-pitting edema. Pt is meeting estimated nutritional needs-adequate to support wound healing. Recommend Nurse to encourage fluid intake to reduce risk for constipation d/t pt Hx chronic constipation. Recommend diet changed to Cardiac d/t labs (07/20) Triglycerides 349, HDL 35. Spoke with RN, Alley concerning recommendation for MD. Anthropometrics HT: 59 WT: 175 LB (79.55 kg) BMI: 25.84 (Overweight) GI/ Skin Integrity GI: WNL, Soft, Non-tender, Round BM: 07/19 x1 I/O: 1840/Not Noted Skin: Area of concern, reddened, erythema Wound: cellulitis of both feet , wound to LT dorsal foot Elijah: 18 Diet Order: Regular Estimated Energy Needs: ( Geriatric, CBW) 0278-7989 kcals (25-30 kcals/ kg) 80-95g Pro (1.0-1.2 g/kg) 9290-9984 ml (25-30 ml/kg) Current Diet Order/ Nutrition Support Regular Pertinent Medications Maalox (PRN), Colace, Theragran Pertinent Labs 07/20: Triglycerides 349, HDL 35 07/17: Glucose 100, Na 131 Nutritional Hx/Data Height 1.75 m Height (Calculated Centimeters) 175.3 Current Weight (lbs) 79.379 kg Weight (Calculated Kilograms) 79.4 Weight (Calculated Grams) 37572.7 [place] Body Weight 160 Lb (72.73 kg) % [place] Body Weight 109 Body Mass Index (BMI) 25.8 Weight Status Overweight GI Symptoms Skin Integrity/Comment: Skin: Area of concern, reddened, erythema Wound: cellulitis of both feet , wound to LT dorsal foot Elijah: 18 Per wound care note (07/17), Intrinsic factors that delay wound healing: Vasoconstriction effects from smoking. Extrinsic factors that delay wound healing: Decreased mobility. Both feet present with Mild non- pitting edema. Pt is meeting estimated nutritional needs- adequate to support wound healing. Current %PO Good (75-100%) Estimated Nutritional Goals BEE in Kcals: Using Current wt Calories/Kcals/Kg 25-30 Kcals Calculated 7592-9035 Protein: Using Current wt Protein g/k.0-1.2 Protein Calculated 80-95 Fluid: ml 7194-4092 ml (25-30 ml/kg) Nutritional Problem 1. Problem Problem Altered nutrition related labs Etiology r/t possible high fat intake/ family Hx Signs/Symptoms: aeb labs (07/20) Triglycerides 349, HDL 35. Malnutrition Related to Morbid Obesity Malnutrition related to morbid obesity No Intervention/Recommendation Comments 1. Recommend diet changed to Cardiac d/t labs (07/20) Triglycerides 349, HDL 2. Nurse to encourage fluid intake to reduce risk for constipation d/t pt Hx chronic constipation. Expected Outcomes/Goals Expected Outcomes/Goals 1. PO intake to continue to meet >75% of estimated nutritional needs. 2. Monitor PO intake, wt, nutrition related labs, and skin integrity to trend WNL. 3. F/U as low risk in 7-10 days, 07/28-07/31
--- NOTE | 2019-07-29 20:37 | Progress Notes ---
DATE: 07/29/2019 SUBJECTIVE: Chart was reviewed and the patient interviewed. Also discussed the patient's condition with the staff and reviewed records and labs. The patient continued to be guarded and is still suspicious and is still paranoid. The patient also is still demanding and easily agitated and easily irritable. He also still has mood swings. The patient also still has difficulty following directions or his temper and his mood is still with anger. Otherwise, the patient has continued to comply with taking his medications with no side effects of medications. TREATMENT PLAN: Depakote blood level that was done on 07/24/2019 came back to be 11. We will repeat Depakote blood level today. Also, we will discontinue Haldol and increase Risperdal to 4 mg twice a day since the patient is taking 2 different antipsychotic medications. At the same time, we will continue to work on his behavior. Although the patient thinks that Haldol is helping him, but at the same time, we cannot give the patient 2 antipsychotic medications at this time, unless if the patient did not respond well to this Risperdal, then we can restart Haldol. JOB# [id number]
[2019-07-30] MEDS: Eucerin Cream 16 oz Jar TP SCH ×2 (08:40→16:51)
[2019-07-30] MEDS: Betamethasone/Clotrimazole Cream 15 gm Tube TP SCH ×2 (08:40→16:51)
[2019-07-30] MEDS: Multivitamin Tab PO SCH (08:41)
[2019-07-30] MEDS: risperiDONE 4 mg Tab PO SCH ×2 (08:41→16:15)
--- NOTE | 2019-07-30 18:25 | Internal Medicine Prog Note ---
Internal Medicine Subjective - Subjective Service Date: 07/30/19 Patient seen and examined:: without staff (HE FEELS BETTER) Patient is:: awake, verbal, in bed, talking, confused Per staff patient has:: no adverse event Internal Medicine Objective - Physical Exam Vitals and I&O: Vital Signs Temp 97.1 F 07/30/19 14:00 Pulse 79 07/30/19 14:00 Resp 18 07/30/19 14:00 BP 129/77 07/30/19 14:00 Pulse Ox 98 07/30/19 14:00 Intake & Output 07/29/19 07/30/19 07/30/19 18:59 06:59 18:59 Intake Total 794 491 3282 Balance 625 953 8833 Intake: Oral 211 087 6005 Other: # Voids 3 2 # Bowel Movements 1 0 1 Active Medications: Current Medications Acetaminophen (Tylenol) 650 mg PO Q4HR PRN PRN Reason: Mild Pain (Scale 1-3) Stop: 09/15/19 18:53 Acetaminophen (Tylenol) 650 mg PO Q4H PRN PRN Reason: TEMP ABOVE 100 Stop: 09/18/19 14:41 Al Hydrox/Mg Hydrox/Simethicone (Maalox) 30 ml PO Q4HR PRN PRN Reason: GI DISTRESS Stop: 09/15/19 18:53 Betamethasone/Clotrimazole (Lotrisone Cream) 1 appl TP BID [facility] Stop: 09/22/19 14:59 Last Admin: 07/30/19 16:51 Dose: 1 appl Divalproex Sodium (Depakote Dr) 500 mg PO DAILY [facility]; Protocol Stop: 09/16/19 08:59 Last Admin: 07/30/19 08:41 Dose: 500 mg Divalproex Sodium (Depakote Dr) 1,000 mg PO HS ROSA; Protocol Stop: 09/18/19 20:59 Last Admin: 07/29/19 21:22 Dose: 1,000 mg Docusate Sodium (Colace) 250 mg PO DAILY [facility]A Stop: 09/16/19 08:59 Last Admin: 07/30/19 08:41 Dose: 250 mg Lorazepam (Ativan) 0.5 mg PO Q4HR PRN; Protocol PRN Reason: Anxiety/Agitation Stop: 08/16/19 20:24 Last Admin: 07/30/19 11:32 Dose: 0.5 mg Multi-Ingredient Cream (Eucerin Cream) 1 appl TP BID [facility] Stop: 09/26/19 16:59 Last Admin: 07/30/19 16:51 Dose: 1 appl Multivitamins/Vitamin C (Theragran) 1 tab PO DAILY [facility] Stop: 09/16/19 08:59 Last Admin: 07/30/19 08:41 Dose: 1 tab Risperidone (Risperdal) 4 mg PO BID [facility]; Protocol Stop: 09/27/19 08:59 Last Admin: 07/30/19 16:15 Dose: 4 mg Trihexyphenidyl HCl (Artane) 5 mg PO BID [facility] Stop: 09/20/19 08:59 Last Admin: 07/30/19 16:15 Dose: 5 mg Zolpidem Tartrate (Ambien) 5 mg PO HS PRN PRN Reason: Insomnia Stop: 09/15/19 18:53 Last Admin: 07/29/19 21:20 Dose: 5 mg General: alert HEENT: NC/AT, PERRLA, EOMI, anicteric sclerae, throat clear Neck: Supple, No JVD, No thyromegaly, +2 carotid pulse wo bruit, No LAD Lungs: CTAB Cardiovascular: RRR, Normal S1, Normal S2, without murmur Abdomen: soft, non-tender, non-distended Extremities: rash (OVER BOTH FEET), other (THE SKIN OF BOTH FEETS ARE IMPROVING) Neurological: no change Internal Medicine Assmt/Plan - Assessment Assessment: 1.CELLULITES OF BOTH FEET 2.CHRONIC CONSTIPATION 3.CHRONIC SMOKING 4.PSYCHOSIS - Plan Plan: CONTINUE ON CURRENT MEDICATION AND DIET. Nutritional Asmnt/Malnutr-PDOC - Dietary Evaluation Malnutrition Findings (Please click <Entered> for more info): Nutritional Asmnt/Malnutrition Start: 07/21/19 15: 52 Text: Status: Complete Freq: Protocol: Document 07/21/19 15:52 FAYE (Rec: 07/21/19 15:57 [email or web address]) Nutritional Asmnt/Malnutrition Patient General Information Nutritional Screening Low Risk Diagnosis Psychosis Pertinent Medical Hx/Surgical Hx Chronic smoking, Chronic constipation, Psychosis Subjective Information Consult: Wound to LT Dorsal Foot, redness to both feet Pt is a 69-year-old male admitted on 07/17 d/t psychosis. Pt is eating an estimated 100% of meals since admit date Per Meal/Nutrition Activity Record. Dietary is currently providing an estimated 2400 kcals and 90 gm Pro, to meet 100% kcal and 100% Pro needs. Per wound care note (07/17), Intrinsic factors that delay wound healing: Vasoconstriction effects from smoking. Extrinsic factors that delay wound healing: Decreased mobility. Both feet present with Mild non-pitting edema. Pt is meeting estimated nutritional needs-adequate to support wound healing. Recommend Nurse to encourage fluid intake to reduce risk for constipation d/t pt Hx chronic constipation. Recommend diet changed to Cardiac d/t labs (07/20) Triglycerides 349, HDL 35. Spoke with RN, Alley concerning recommendation for MD. Anthropometrics HT: 59 WT: 175 LB (79.55 kg) BMI: 25.84 (Overweight) GI/ Skin Integrity GI: WNL, Soft, Non-tender, Round BM: 07/19 x1 I/O: 1840/Not Noted Skin: Area of concern, reddened, erythema Wound: cellulitis of both feet , wound to LT dorsal foot Elijah: 18 Diet Order: Regular Estimated Energy Needs: ( Geriatric, CBW) 9372-0299 kcals (25-30 kcals/ kg) 80-95g Pro (1.0-1.2 g/kg) 1623-5398 ml (25-30 ml/kg) Current Diet Order/ Nutrition Support Regular Pertinent Medications Maalox (PRN), Colace, Theragran Pertinent Labs 07/20: Triglycerides 349, HDL 35 07/17: Glucose 100, Na 131 Nutritional Hx/Data Height 1.75 m Height (Calculated Centimeters) 175.3 Current Weight (lbs) 79.379 kg Weight (Calculated Kilograms) 79.4 Weight (Calculated Grams) 90195.7 [place] Body Weight 160 Lb (72.73 kg) % [place] Body Weight 109 Body Mass Index (BMI) 25.8 Weight Status Overweight GI Symptoms Skin Integrity/Comment: Skin: Area of concern, reddened, erythema Wound: cellulitis of both feet , wound to LT dorsal foot Elijah: 18 Per wound care note (07/17), Intrinsic factors that delay wound healing: Vasoconstriction effects from smoking. Extrinsic factors that delay wound healing: Decreased mobility. Both feet present with Mild non- pitting edema. Pt is meeting estimated nutritional needs- adequate to support wound healing. Current %PO Good (75-100%) Estimated Nutritional Goals BEE in Kcals: Using Current wt Calories/Kcals/Kg 25-30 Kcals Calculated 6323-3255 Protein: Using Current wt Protein g/k.0-1.2 Protein Calculated 80-95 Fluid: ml 4653-5189 ml (25-30 ml/kg) Nutritional Problem 1. Problem Problem Altered nutrition related labs Etiology r/t possible high fat intake/ family Hx Signs/Symptoms: aeb labs (07/20) Triglycerides 349, HDL 35. Malnutrition Related to Morbid Obesity Malnutrition related to morbid obesity No Intervention/Recommendation Comments 1. Recommend diet changed to Cardiac d/t labs (07/20) Triglycerides 349, HDL 2. Nurse to encourage fluid intake to reduce risk for constipation d/t pt Hx chronic constipation. Expected Outcomes/Goals Expected Outcomes/Goals 1. PO intake to continue to meet >75% of estimated nutritional needs. 2. Monitor PO intake, wt, nutrition related labs, and skin integrity to trend WNL. 3. F/U as low risk in 7-10 days, 07/28-07/31
--- NOTE | 2019-07-30 21:53 | Progress Notes ---
DATE: SUBJECTIVE: Chart reviewed and patient interviewed. Also discussed patient's condition with the staff and reviewed records and labs. The patient is still in angry and in irritable mood. The patient also is still suspicious and paranoid. He also is still easily agitated and easily irritable and still threatening staff and others on the unit. He also still needs lots of redirections. Otherwise, patient continued to take Risperdal and Depakote and Haldol was stopped yesterday with no side effects. The patient is still asking for Haldol, but at the same time, patient was not doing well and it seems that he is showing some improvement with the Risperdal. ASSESSMENT: The patient is still agitated and has threatening behavior. TREATMENT PLAN: Continue to monitor behavior and condition closely. Also, continue adjusting psychotropic medications and work on behavioral modification. JOB# [id number]
[2019-07-31] MEDS: Multivitamin Tab PO SCH (08:19)
[2019-07-31] MEDS: Betamethasone/Clotrimazole Cream 15 gm Tube TP SCH ×2 (08:30→16:17)
[2019-07-31] MEDS: Eucerin Cream 16 oz Jar TP SCH ×2 (08:30→16:19)
--- NOTE | 2019-07-31 19:39 | Internal Medicine Prog Note ---
Internal Medicine Subjective - Subjective Service Date: 07/31/19 Patient seen and examined:: without staff (HE FEELS WELL) Patient is:: awake, verbal, in bed, talking, confused Per staff patient has:: no adverse event Internal Medicine Objective - Physical Exam Vitals and I&O: Vital Signs Temp 97.2 F 07/31/19 14:00 Pulse 79 07/31/19 14:00 Resp 20 07/31/19 14:00 BP 121/78 07/31/19 14:00 Pulse Ox 97 07/31/19 14:00 Intake & Output 07/31/19 07/31/19 08/01/19 06:59 18:59 06:59 Intake Total 500 1200 Balance 500 1200 Intake: Oral 500 1200 Other: # Voids 1 # Bowel Movements 0 1 Active Medications: Current Medications Acetaminophen (Tylenol) 650 mg PO Q4HR PRN PRN Reason: Mild Pain (Scale 1-3) Stop: 09/15/19 18:53 Acetaminophen (Tylenol) 650 mg PO Q4H PRN PRN Reason: TEMP ABOVE 100 Stop: 09/18/19 14:41 Al Hydrox/Mg Hydrox/Simethicone (Maalox) 30 ml PO Q4HR PRN PRN Reason: GI DISTRESS Stop: 09/15/19 18:53 Betamethasone/Clotrimazole (Lotrisone Cream) 1 appl TP BID [facility] Stop: 09/22/19 14:59 Last Admin: 07/31/19 16:17 Dose: 1 appl Divalproex Sodium (Depakote Dr) 500 mg PO DAILY [facility]; Protocol Stop: 09/16/19 08:59 Last Admin: 07/31/19 08:19 Dose: 500 mg Divalproex Sodium (Depakote Dr) 1,000 mg PO HS [facility]; Protocol Stop: 09/18/19 20:59 Last Admin: 07/30/19 20:17 Dose: 1,000 mg Docusate Sodium (Colace) 250 mg PO DAILY [facility] Stop: 09/16/19 08:59 Last Admin: 07/31/19 08:19 Dose: 250 mg Haloperidol (Haldol) 5 mg PO BID [facility]; Protocol Stop: 09/29/19 08:59 Last Admin: 07/31/19 16:04 Dose: 5 mg Lorazepam (Ativan) 0.5 mg PO Q4HR PRN; Protocol PRN Reason: Anxiety/Agitation Stop: 08/16/19 20:24 Last Admin: 07/30/19 11:32 Dose: 0.5 mg Multi-Ingredient Cream (Eucerin Cream) 1 appl TP BID [facility] Stop: 09/26/19 16:59 Last Admin: 07/31/19 16:19 Dose: 1 appl Multivitamins/Vitamin C (Theragran) 1 tab PO DAILY [facility] Stop: 09/16/19 08:59 Last Admin: 07/31/19 08:19 Dose: 1 tab Risperidone (Risperdal) 1 mg PO BID [facility]; Protocol Stop: 09/29/19 08:59 Last Admin: 07/31/19 16:04 Dose: 1 mg Trihexyphenidyl HCl (Artane) 5 mg PO BID [facility] Stop: 09/20/19 08:59 Last Admin: 07/31/19 16:04 Dose: 5 mg Zolpidem Tartrate (Ambien) 5 mg PO HS PRN PRN Reason: Insomnia Stop: 09/15/19 18:53 Last Admin: 07/30/19 20:17 Dose: 5 mg General: alert HEENT: NC/AT, PERRLA, EOMI, anicteric sclerae, throat clear Neck: Supple, No JVD, No thyromegaly, +2 carotid pulse wo bruit, No LAD Lungs: CTAB Cardiovascular: RRR, Normal S1, Normal S2, without murmur Abdomen: soft, non-tender, non-distended Extremities: rash (OVER BOTH FEET), other (THE SKIN OF BOTH FEETS ARE IMPROVING) Neurological: no change Internal Medicine Assmt/Plan - Assessment Assessment: 1.CELLULITES OF BOTH FEET 2.CHRONIC CONSTIPATION 3.CHRONIC SMOKING 4.PSYCHOSIS - Plan Plan: CONTINUE ON CURRENT MEDICATION AND DIET. Nutritional Asmnt/Malnutr-PDOC - Dietary Evaluation Malnutrition Findings (Please click <Entered> for more info): Nutritional Asmnt/Malnutrition Start: 07/21/19 15: 52 Text: Status: Complete Freq: Protocol: Document 07/21/19 15:52 FAYE (Rec: 07/21/19 15:57 [email or web address]) Nutritional Asmnt/Malnutrition Patient General Information Nutritional Screening Low Risk Diagnosis Psychosis Pertinent Medical Hx/Surgical Hx Chronic smoking, Chronic constipation, Psychosis Subjective Information Consult: Wound to LT Dorsal Foot, redness to both feet Pt is a 69-year-old male admitted on 07/17 d/t psychosis. Pt is eating an estimated 100% of meals since admit date Per Meal/Nutrition Activity Record. Dietary is currently providing an estimated 2400 kcals and 90 gm Pro, to meet 100% kcal and 100% Pro needs. Per wound care note (07/17), Intrinsic factors that delay wound healing: Vasoconstriction effects from smoking. Extrinsic factors that delay wound healing: Decreased mobility. Both feet present with Mild non-pitting edema. Pt is meeting estimated nutritional needs-adequate to support wound healing. Recommend Nurse to encourage fluid intake to reduce risk for constipation d/t pt Hx chronic constipation. Recommend diet changed to Cardiac d/t labs (07/20) Triglycerides 349, HDL 35. Spoke with RNAlley concerning recommendation for MD. Anthropometrics HT: 59 WT: 175 LB (79.55 kg) BMI: 25.84 (Overweight) GI/ Skin Integrity GI: WNL, Soft, Non-tender, Round BM: 07/19 x1 I/O: 1840/Not Noted Skin: Area of concern, reddened, erythema Wound: cellulitis of both feet , wound to LT dorsal foot Elijah: 18 Diet Order: Regular Estimated Energy Needs: ( Geriatric, CBW) 6202-2689 kcals (25-30 kcals/ kg) 80-95g Pro (1.0-1.2 g/kg) 1302-0581 ml (25-30 ml/kg) Current Diet Order/ Nutrition Support Regular Pertinent Medications Maalox (PRN), Colace, Theragran Pertinent Labs 07/20: Triglycerides 349, HDL 35 07/17: Glucose 100, Na 131 Nutritional Hx/Data Height 1.75 m Height (Calculated Centimeters) 175.3 Current Weight (lbs) 79.379 kg Weight (Calculated Kilograms) 79.4 Weight (Calculated Grams) 33190.7 [place] Body Weight 160 Lb (72.73 kg) % [place] Body Weight 109 Body Mass Index (BMI) 25.8 Weight Status Overweight GI Symptoms Skin Integrity/Comment: Skin: Area of concern, reddened, erythema Wound: cellulitis of both feet , wound to LT dorsal foot Elijah: 18 Per wound care note (07/17), Intrinsic factors that delay wound healing: Vasoconstriction effects from smoking. Extrinsic factors that delay wound healing: Decreased mobility. Both feet present with Mild non- pitting edema. Pt is meeting estimated nutritional needs- adequate to support wound healing. Current %PO Good (75-100%) Estimated Nutritional Goals BEE in Kcals: Using Current wt Calories/Kcals/Kg 25-30 Kcals Calculated 9487-7394 Protein: Using Current wt Protein g/k.0-1.2 Protein Calculated 80-95 Fluid: ml 9840-8086 ml (25-30 ml/kg) Nutritional Problem 1. Problem Problem Altered nutrition related labs Etiology r/t possible high fat intake/ family Hx Signs/Symptoms: aeb labs (07/20) Triglycerides 349, HDL 35. Malnutrition Related to Morbid Obesity Malnutrition related to morbid obesity No Intervention/Recommendation Comments 1. Recommend diet changed to Cardiac d/t labs (07/20) Triglycerides 349, HDL 2. Nurse to encourage fluid intake to reduce risk for constipation d/t pt Hx chronic constipation. Expected Outcomes/Goals Expected Outcomes/Goals 1. PO intake to continue to meet >75% of estimated nutritional needs. 2. Monitor PO intake, wt, nutrition related labs, and skin integrity to trend WNL. 3. F/U as low risk in 7-10 days, 07/28-07/31
--- NOTE | 2019-07-31 19:39 | Progress Notes ---
DATE: SUBJECTIVE: Chart was reviewed and the patient interviewed. Also discussed the patient's condition with the staff and reviewed the records and labs. The patient is still intrusive and is still demanding and easily agitated. The patient also is still using foul language with the nurses and has still threatening behavior at times. He also is still in angry mood and has difficulty following directions. The patient is demanding "I need Haldol." He is asking to get Haldol and this is over Risperdal. At the same time, he is still in irritable mood and saying that Risperdal is not helping him much. ASSESSMENT: The patient is still psychotic and still agitated. TREATMENT PLAN: We will continue monitoring behavior and condition closely. We will start Haldol 5 mg twice a day and we will decrease Risperdal to 1 mg twice a day and continue cross titrating. Also, continue to work on his behavioral problems and his agitation and continue to follow up. Depakote blood level that was done on July 29 came back to be 14. JOB# [id number]
[2019-08-01] MEDS: Betamethasone/Clotrimazole Cream 15 gm Tube TP SCH ×2 (08:21→16:39)
[2019-08-01] MEDS: Multivitamin Tab PO SCH (08:21)
[2019-08-01] MEDS: Eucerin Cream 16 oz Jar TP SCH ×2 (08:22→16:39)
--- NOTE | 2019-08-01 15:13 | Progress Notes ---
DATE: 08/01/2019 Case was discussed with staff of the patient, reviewed records. This 69-year-old male who was admitted on 07/17/2019 because of aggressive behavior, threatening staff at the [facility]. The patient has been angry, irritable with a history of schizophrenia, anxiety. The patient is unpredictable, impulsive, needing redirection, and has been demanding at times, intrusive, threatening, using foul language with the nursing staff, hard to redirect, unpredictable, and impulsive. No side effects with the medication, no sedation, no nausea, and no extrapyramidal symptoms. He is on Risperdal, Haldol, Depakote, and Artane. We will continue outpatient group therapy, milieu therapy, and adjust medication as needed. JOB# [id number]
--- NOTE | 2019-08-01 19:02 | Internal Medicine Prog Note ---
Internal Medicine Subjective - Subjective Service Date: 08/01/19 Patient seen and examined:: without staff (he feels well) Patient is:: awake, verbal, in bed, talking, confused Per staff patient has:: no adverse event Internal Medicine Objective - Physical Exam Vitals and I&O: Vital Signs Temp 98 F 08/01/19 06:55 Pulse 63 08/01/19 06:55 Resp 20 08/01/19 06:55 BP 115/73 08/01/19 06:55 Pulse Ox 100 08/01/19 06:55 Intake & Output 08/01/19 08/01/19 08/02/19 06:59 18:59 06:59 Intake Total 480 1000 Balance 480 1000 Intake: Oral 480 1000 Other: # Voids 1 4 # Bowel Movements 1 Active Medications: Current Medications Acetaminophen (Tylenol) 650 mg PO Q4HR PRN PRN Reason: Mild Pain (Scale 1-3) Stop: 09/15/19 18:53 Acetaminophen (Tylenol) 650 mg PO Q4H PRN PRN Reason: TEMP ABOVE 100 Stop: 09/18/19 14:41 Al Hydrox/Mg Hydrox/Simethicone (Maalox) 30 ml PO Q4HR PRN PRN Reason: GI DISTRESS Stop: 09/15/19 18:53 Betamethasone/Clotrimazole (Lotrisone Cream) 1 appl TP BID [facility] Stop: 09/22/19 14:59 Last Admin: 08/01/19 16:39 Dose: 1 appl Divalproex Sodium (Depakote Dr) 500 mg PO DAILY [facility]; Protocol Stop: 09/16/19 08:59 Last Admin: 08/01/19 08:21 Dose: 500 mg Divalproex Sodium (Depakote Dr) 1,000 mg PO HS [facility]; Protocol Stop: 09/18/19 20:59 Last Admin: 07/31/19 20:03 Dose: 1,000 mg Docusate Sodium (Colace) 250 mg PO DAILY [facility] Stop: 09/16/19 08:59 Last Admin: 08/01/19 08:21 Dose: 250 mg Haloperidol (Haldol) 5 mg PO BID [facility]; Protocol Stop: 09/29/19 08:59 Last Admin: 08/01/19 16:38 Dose: 5 mg Lorazepam (Ativan) 0.5 mg PO Q4HR PRN; Protocol PRN Reason: Anxiety/Agitation Stop: 08/16/19 20:24 Last Admin: 08/01/19 16:38 Dose: 0.5 mg Multi-Ingredient Cream (Eucerin Cream) 1 appl TP BID [facility] Stop: 09/26/19 16:59 Last Admin: 08/01/19 16:39 Dose: 1 appl Multivitamins/Vitamin C (Theragran) 1 tab PO DAILY [facility] Stop: 09/16/19 08:59 Last Admin: 08/01/19 08:21 Dose: 1 tab Risperidone (Risperdal) 1 mg PO BID [facility]; Protocol Stop: 09/29/19 08:59 Last Admin: 08/01/19 16:38 Dose: 1 mg Trihexyphenidyl HCl (Artane) 5 mg PO BID [facility] Stop: 09/20/19 08:59 Last Admin: 08/01/19 16:38 Dose: 5 mg Zolpidem Tartrate (Ambien) 5 mg PO HS PRN PRN Reason: Insomnia Stop: 09/15/19 18:53 Last Admin: 07/30/19 20:17 Dose: 5 mg General: alert HEENT: NC/AT, PERRLA, EOMI, anicteric sclerae, throat clear Neck: Supple, No JVD, No thyromegaly, +2 carotid pulse wo bruit, No LAD Lungs: CTAB Cardiovascular: RRR, Normal S1, Normal S2, without murmur Abdomen: soft, non-tender, non-distended Extremities: rash (OVER BOTH FEET), other (THE SKIN OF BOTH FEETS ARE IMPROVING) Neurological: no change Internal Medicine Assmt/Plan - Assessment Assessment: 1.CELLULITES OF BOTH FEET 2.CHRONIC CONSTIPATION 3.CHRONIC SMOKING 4.PSYCHOSIS - Plan Plan: CONTINUE ON CURRENT MEDICATION AND DIET. Nutritional Asmnt/Malnutr-PDOC - Dietary Evaluation Malnutrition Findings (Please click <Entered> for more info): Nutritional Asmnt/Malnutrition Start: 07/21/19 15: 52 Text: Status: Complete Freq: Protocol: Document 07/21/19 15:52 FAYE (Rec: 07/21/19 15:57 FAYE [email or web address]) Nutritional Asmnt/Malnutrition Patient General Information Nutritional Screening Low Risk Diagnosis Psychosis Pertinent Medical Hx/Surgical Hx Chronic smoking, Chronic constipation, Psychosis Subjective Information Consult: Wound to LT Dorsal Foot, redness to both feet Pt is a 69-year-old male admitted on 07/17 d/t psychosis. Pt is eating an estimated 100% of meals since admit date Per Meal/Nutrition Activity Record. Dietary is currently providing an estimated 2400 kcals and 90 gm Pro, to meet 100% kcal and 100% Pro needs. Per wound care note (07/17), Intrinsic factors that delay wound healing: Vasoconstriction effects from smoking. Extrinsic factors that delay wound healing: Decreased mobility. Both feet present with Mild non-pitting edema. Pt is meeting estimated nutritional needs-adequate to support wound healing. Recommend Nurse to encourage fluid intake to reduce risk for constipation d/t pt Hx chronic constipation. Recommend diet changed to Cardiac d/t labs (07/20) Triglycerides 349, HDL 35. Spoke with RN, Alley concerning recommendation for MD. Anthropometrics HT: 59 WT: 175 LB (79.55 kg) BMI: 25.84 (Overweight) GI/ Skin Integrity GI: WNL, Soft, Non-tender, Round BM: 07/19 x1 I/O: 1840/Not Noted Skin: Area of concern, reddened, erythema Wound: cellulitis of both feet , wound to LT dorsal foot Elijah: 18 Diet Order: Regular Estimated Energy Needs: ( Geriatric, CBW) 5393-6972 kcals (25-30 kcals/ kg) 80-95g Pro (1.0-1.2 g/kg) 1664-4072 ml (25-30 ml/kg) Current Diet Order/ Nutrition Support Regular Pertinent Medications Maalox (PRN), Colace, Theragran Pertinent Labs 07/20: Triglycerides 349, HDL 35 07/17: Glucose 100, Na 131 Nutritional Hx/Data Height 1.75 m Height (Calculated Centimeters) 175.3 Current Weight (lbs) 79.379 kg Weight (Calculated Kilograms) 79.4 Weight (Calculated Grams) 60030.7 [place] Body Weight 160 Lb (72.73 kg) % [place] Body Weight 109 Body Mass Index (BMI) 25.8 Weight Status Overweight GI Symptoms Skin Integrity/Comment: Skin: Area of concern, reddened, erythema Wound: cellulitis of both feet , wound to LT dorsal foot Elijah: 18 Per wound care note (07/17), Intrinsic factors that delay wound healing: Vasoconstriction effects from smoking. Extrinsic factors that delay wound healing: Decreased mobility. Both feet present with Mild non- pitting edema. Pt is meeting estimated nutritional needs- adequate to support wound healing. Current %PO Good (75-100%) Estimated Nutritional Goals BEE in Kcals: Using Current wt Calories/Kcals/Kg 25-30 Kcals Calculated 2942-6989 Protein: Using Current wt Protein g/k.0-1.2 Protein Calculated 80-95 Fluid: ml 5717-8931 ml (25-30 ml/kg) Nutritional Problem 1. Problem Problem Altered nutrition related labs Etiology r/t possible high fat intake/ family Hx Signs/Symptoms: aeb labs (07/20) Triglycerides 349, HDL 35. Malnutrition Related to Morbid Obesity Malnutrition related to morbid obesity No Intervention/Recommendation Comments 1. Recommend diet changed to Cardiac d/t labs (07/20) Triglycerides 349, HDL 2. Nurse to encourage fluid intake to reduce risk for constipation d/t pt Hx chronic constipation. Expected Outcomes/Goals Expected Outcomes/Goals 1. PO intake to continue to meet >75% of estimated nutritional needs. 2. Monitor PO intake, wt, nutrition related labs, and skin integrity to trend WNL. 3. F/U as low risk in 7-10 days, 07/28-07/31
[2019-08-02] MEDS: Betamethasone/Clotrimazole Cream 15 gm Tube TP SCH ×2 (08:22→17:26)
[2019-08-02] MEDS: Eucerin Cream 16 oz Jar TP SCH ×2 (08:29→17:26)
[2019-08-02] MEDS: Multivitamin Tab PO SCH (08:30)
--- NOTE | 2019-08-02 15:58 | Progress Notes ---
DATE: 08/02/2019 Case was discussed with staff of the patient, reviewed records. The patient continues to be irritable, continues to be anxious, internally preoccupied, impulsive, unpredictable using foul language and threatening staff, intrusive, unpredictable, hard to redirect. No side effects with the medication, no sedation, no nausea, no extrapyramidal symptoms. We will continue the patient in group therapy, milieu therapy, and adjust medications as needed. JOB# [id number]
--- NOTE | 2019-08-02 19:15 | Internal Medicine Prog Note ---
Internal Medicine Subjective - Subjective Patient seen and examined:: with staff (he feels better) Patient is:: awake, verbal, in bed, talking, confused Per staff patient has:: no adverse event Internal Medicine Objective - Physical Exam Vitals and I&O: Vital Signs Temp 97.4 F 08/02/19 14:00 Pulse 68 08/02/19 14:00 Resp 20 08/02/19 14:00 BP 120/73 08/02/19 14:00 Pulse Ox 97 08/02/19 14:00 Intake & Output 08/02/19 08/02/19 08/03/19 06:59 18:59 06:59 Intake Total 240 1000 Balance 240 1000 Intake: Oral 240 1000 Other: # Voids 2 4 # Bowel Movements 1 Stool Characteristics Formed Brown Active Medications: Current Medications Acetaminophen (Tylenol) 650 mg PO Q4HR PRN PRN Reason: Mild Pain (Scale 1-3) Stop: 09/15/19 18:53 Acetaminophen (Tylenol) 650 mg PO Q4H PRN PRN Reason: TEMP ABOVE 100 Stop: 09/18/19 14:41 Al Hydrox/Mg Hydrox/Simethicone (Maalox) 30 ml PO Q4HR PRN PRN Reason: GI DISTRESS Stop: 09/15/19 18:53 Betamethasone/Clotrimazole (Lotrisone Cream) 1 appl TP BID [facility] Stop: 09/22/19 14:59 Last Admin: 08/02/19 17:26 Dose: 1 appl Divalproex Sodium (Depakote Dr) 500 mg PO DAILY [facility]; Protocol Stop: 09/16/19 08:59 Last Admin: 08/02/19 08:29 Dose: 500 mg Divalproex Sodium (Depakote Dr) 1,000 mg PO HS [facility]; Protocol Stop: 09/18/19 20:59 Last Admin: 08/01/19 20:03 Dose: 1,000 mg Docusate Sodium (Colace) 250 mg PO DAILY [facility] Stop: 09/16/19 08:59 Last Admin: 08/02/19 08:29 Dose: 250 mg Haloperidol (Haldol) 5 mg PO BID [facility]; Protocol Stop: 09/29/19 08:59 Last Admin: 08/02/19 17:01 Dose: 5 mg Lorazepam (Ativan) 0.5 mg PO Q4HR PRN; Protocol PRN Reason: Anxiety/Agitation Stop: 08/16/19 20:24 Last Admin: 08/01/19 16:38 Dose: 0.5 mg Multi-Ingredient Cream (Eucerin Cream) 1 appl TP BID [facility] Stop: 09/26/19 16:59 Last Admin: 08/02/19 17:26 Dose: 1 appl Multivitamins/Vitamin C (Theragran) 1 tab PO DAILY [facility] Stop: 09/16/19 08:59 Last Admin: 08/02/19 08:30 Dose: 1 tab Risperidone (Risperdal) 1 mg PO BID [facility]; Protocol Stop: 09/29/19 08:59 Last Admin: 08/02/19 17:01 Dose: 1 mg Trihexyphenidyl HCl (Artane) 5 mg PO BID [facility] Stop: 09/20/19 08:59 Last Admin: 08/02/19 17:02 Dose: 5 mg Zolpidem Tartrate (Ambien) 5 mg PO HS PRN PRN Reason: Insomnia Stop: 09/15/19 18:53 Last Admin: 08/01/19 20:03 Dose: 5 mg General: alert HEENT: NC/AT, PERRLA, EOMI, anicteric sclerae, throat clear Neck: Supple, No JVD, No thyromegaly, +2 carotid pulse wo bruit, No LAD Lungs: CTAB Cardiovascular: RRR, Normal S1, Normal S2, without murmur Abdomen: soft, non-tender, non-distended Extremities: rash (OVER BOTH FEET), other (THE SKIN OF BOTH FEETS ARE IMPROVING) Neurological: no change Internal Medicine Assmt/Plan - Assessment Assessment: 1.CELLULITES OF BOTH FEET 2.CHRONIC CONSTIPATION 3.CHRONIC SMOKING 4.PSYCHOSIS - Plan Plan: CONTINUE ON CURRENT MEDICATION AND DIET. Nutritional Asmnt/Malnutr-PDOC - Dietary Evaluation Malnutrition Findings (Please click <Entered> for more info): Nutritional Asmnt/Malnutrition Start: 07/21/19 15: 52 Text: Status: Complete Freq: Protocol: Document 07/21/19 15:52 FAYE (Rec: 07/21/19 15:57 FAYE [email or web address]) Nutritional Asmnt/Malnutrition Patient General Information Nutritional Screening Low Risk Diagnosis Psychosis Pertinent Medical Hx/Surgical Hx Chronic smoking, Chronic constipation, Psychosis Subjective Information Consult: Wound to LT Dorsal Foot, redness to both feet Pt is a 69-year-old male admitted on 07/17 d/t psychosis. Pt is eating an estimated 100% of meals since admit date Per Meal/Nutrition Activity Record. Dietary is currently providing an estimated 2400 kcals and 90 gm Pro, to meet 100% kcal and 100% Pro needs. Per wound care note (07/17), Intrinsic factors that delay wound healing: Vasoconstriction effects from smoking. Extrinsic factors that delay wound healing: Decreased mobility. Both feet present with Mild non-pitting edema. Pt is meeting estimated nutritional needs-adequate to support wound healing. Recommend Nurse to encourage fluid intake to reduce risk for constipation d/t pt Hx chronic constipation. Recommend diet changed to Cardiac d/t labs (07/20) Triglycerides 349, HDL 35. Spoke with RNAlley concerning recommendation for MD. Anthropometrics HT: 59 WT: 175 LB (79.55 kg) BMI: 25.84 (Overweight) GI/ Skin Integrity GI: WNL, Soft, Non-tender, Round BM: 07/19 x1 I/O: 1840/Not Noted Skin: Area of concern, reddened, erythema Wound: cellulitis of both feet , wound to LT dorsal foot Elijah: 18 Diet Order: Regular Estimated Energy Needs: ( Geriatric, CBW) 4867-7344 kcals (25-30 kcals/ kg) 80-95g Pro (1.0-1.2 g/kg) 0837-9466 ml (25-30 ml/kg) Current Diet Order/ Nutrition Support Regular Pertinent Medications Maalox (PRN), Colace, Theragran Pertinent Labs 07/20: Triglycerides 349, HDL 35 07/17: Glucose 100, Na 131 Nutritional Hx/Data Height 1.75 m Height (Calculated Centimeters) 175.3 Current Weight (lbs) 79.379 kg Weight (Calculated Kilograms) 79.4 Weight (Calculated Grams) 39240.7 [place] Body Weight 160 Lb (72.73 kg) % [place] Body Weight 109 Body Mass Index (BMI) 25.8 Weight Status Overweight GI Symptoms Skin Integrity/Comment: Skin: Area of concern, reddened, erythema Wound: cellulitis of both feet , wound to LT dorsal foot Elijah: 18 Per wound care note (07/17), Intrinsic factors that delay wound healing: Vasoconstriction effects from smoking. Extrinsic factors that delay wound healing: Decreased mobility. Both feet present with Mild non- pitting edema. Pt is meeting estimated nutritional needs- adequate to support wound healing. Current %PO Good (75-100%) Estimated Nutritional Goals BEE in Kcals: Using Current wt Calories/Kcals/Kg 25-30 Kcals Calculated 1511-9160 Protein: Using Current wt Protein g/k.0-1.2 Protein Calculated 80-95 Fluid: ml 2650-6110 ml (25-30 ml/kg) Nutritional Problem 1. Problem Problem Altered nutrition related labs Etiology r/t possible high fat intake/ family Hx Signs/Symptoms: aeb labs (07/20) Triglycerides 349, HDL 35. Malnutrition Related to Morbid Obesity Malnutrition related to morbid obesity No Intervention/Recommendation Comments 1. Recommend diet changed to Cardiac d/t labs (07/20) Triglycerides 349, HDL 2. Nurse to encourage fluid intake to reduce risk for constipation d/t pt Hx chronic constipation. Expected Outcomes/Goals Expected Outcomes/Goals 1. PO intake to continue to meet >75% of estimated nutritional needs. 2. Monitor PO intake, wt, nutrition related labs, and skin integrity to trend WNL. 3. F/U as low risk in 7-10 days, 07/28-07/31
[2019-08-03] MEDS: Betamethasone/Clotrimazole Cream 15 gm Tube TP SCH ×2 (08:28→16:09)
[2019-08-03] MEDS: Eucerin Cream 16 oz Jar TP SCH ×2 (08:28→16:09)
[2019-08-03] MEDS: Multivitamin Tab PO SCH (08:30)
--- NOTE | 2019-08-03 20:01 | Internal Medicine Prog Note ---
Internal Medicine Subjective - Subjective Service Date: 08/03/19 Patient seen and examined:: without staff (HE FEELS WELL) Patient is:: awake, verbal, in bed, talking, confused Per staff patient has:: no adverse event Internal Medicine Objective - Physical Exam Vitals and I&O: Vital Signs Temp 97.6 F 08/03/19 14:00 Pulse 66 08/03/19 14:00 Resp 20 08/03/19 14:00 BP 132/64 08/03/19 14:00 Pulse Ox 96 08/03/19 14:00 Intake & Output 08/03/19 08/03/19 08/04/19 06:59 18:59 06:59 Intake Total 180 1000 180 Balance 180 1000 180 Intake: Oral 180 1000 180 Other: # Voids 3 4 # Bowel Movements 0 1 Stool Characteristics Formed Brown Active Medications: Current Medications Acetaminophen (Tylenol) 650 mg PO Q4HR PRN PRN Reason: Mild Pain (Scale 1-3) Stop: 09/15/19 18:53 Acetaminophen (Tylenol) 650 mg PO Q4H PRN PRN Reason: TEMP ABOVE 100 Stop: 09/18/19 14:41 Al Hydrox/Mg Hydrox/Simethicone (Maalox) 30 ml PO Q4HR PRN PRN Reason: GI DISTRESS Stop: 09/15/19 18:53 Betamethasone/Clotrimazole (Lotrisone Cream) 1 appl TP BID [facility] Stop: 09/22/19 14:59 Last Admin: 08/03/19 16:09 Dose: 1 appl Divalproex Sodium (Depakote Dr) 500 mg PO DAILY [facility]; Protocol Stop: 09/16/19 08:59 Last Admin: 08/03/19 08:30 Dose: 500 mg Divalproex Sodium (Depakote Dr) 1,000 mg PO HS [facility]; Protocol Stop: 09/18/19 20:59 Last Admin: 08/02/19 21:33 Dose: 1,000 mg Docusate Sodium (Colace) 250 mg PO DAILY [facility] Stop: 09/16/19 08:59 Last Admin: 08/03/19 08:30 Dose: 250 mg Haloperidol (Haldol) 5 mg PO BID [facility]; Protocol Stop: 09/29/19 08:59 Last Admin: 08/03/19 16:09 Dose: 5 mg Lorazepam (Ativan) 0.5 mg PO Q4HR PRN; Protocol PRN Reason: Anxiety/Agitation Stop: 08/16/19 20:24 Last Admin: 08/01/19 16:38 Dose: 0.5 mg Multi-Ingredient Cream (Eucerin Cream) 1 appl TP BID [facility] Stop: 09/26/19 16:59 Last Admin: 08/03/19 16:09 Dose: 1 appl Multivitamins/Vitamin C (Theragran) 1 tab PO DAILY [facility] Stop: 09/16/19 08:59 Last Admin: 08/03/19 08:30 Dose: 1 tab Risperidone (Risperdal) 1 mg PO BID [facility]; Protocol Stop: 09/29/19 08:59 Last Admin: 08/03/19 16:09 Dose: 1 mg Trihexyphenidyl HCl (Artane) 5 mg PO BID [facility] Stop: 09/20/19 08:59 Last Admin: 08/03/19 16:10 Dose: 5 mg Zolpidem Tartrate (Ambien) 5 mg PO HS PRN PRN Reason: Insomnia Stop: 09/15/19 18:53 Last Admin: 08/02/19 21:33 Dose: 5 mg General: alert HEENT: NC/AT, PERRLA, EOMI, anicteric sclerae, throat clear Neck: Supple, No JVD, No thyromegaly, +2 carotid pulse wo bruit, No LAD Lungs: CTAB Cardiovascular: RRR, Normal S1, Normal S2, without murmur Abdomen: soft, non-tender, non-distended Extremities: rash (OVER BOTH FEET), other (THE SKIN OF BOTH FEETS ARE IMPROVING) Neurological: no change Internal Medicine Assmt/Plan - Assessment Assessment: 1.CELLULITES OF BOTH FEET 2.CHRONIC CONSTIPATION 3.CHRONIC SMOKING 4.PSYCHOSIS - Plan Plan: CONTINUE ON CURRENT MEDICATION AND DIET. Nutritional Asmnt/Malnutr-PDOC - Dietary Evaluation Malnutrition Findings (Please click <Entered> for more info): Nutritional Asmnt/Malnutrition Start: 07/21/19 15: 52 Text: Status: Complete Freq: Protocol: Document 07/21/19 15:52 JORGE LMUS (Rec: 07/21/19 15:57 FAYE [email or web address]) Nutritional Asmnt/Malnutrition Patient General Information Nutritional Screening Low Risk Diagnosis Psychosis Pertinent Medical Hx/Surgical Hx Chronic smoking, Chronic constipation, Psychosis Subjective Information Consult: Wound to LT Dorsal Foot, redness to both feet Pt is a 69-year-old male admitted on 07/17 d/t psychosis. Pt is eating an estimated 100% of meals since admit date Per Meal/Nutrition Activity Record. Dietary is currently providing an estimated 2400 kcals and 90 gm Pro, to meet 100% kcal and 100% Pro needs. Per wound care note (07/17), Intrinsic factors that delay wound healing: Vasoconstriction effects from smoking. Extrinsic factors that delay wound healing: Decreased mobility. Both feet present with Mild non-pitting edema. Pt is meeting estimated nutritional needs-adequate to support wound healing. Recommend Nurse to encourage fluid intake to reduce risk for constipation d/t pt Hx chronic constipation. Recommend diet changed to Cardiac d/t labs (07/20) Triglycerides 349, HDL 35. Spoke with RNAlley concerning recommendation for MD. Anthropometrics HT: 59 WT: 175 LB (79.55 kg) BMI: 25.84 (Overweight) GI/ Skin Integrity GI: WNL, Soft, Non-tender, Round BM: 07/19 x1 I/O: 1840/Not Noted Skin: Area of concern, reddened, erythema Wound: cellulitis of both feet , wound to LT dorsal foot Elijah: 18 Diet Order: Regular Estimated Energy Needs: ( Geriatric, CBW) 1875-6522 kcals (25-30 kcals/ kg) 80-95g Pro (1.0-1.2 g/kg) 6970-8204 ml (25-30 ml/kg) Current Diet Order/ Nutrition Support Regular Pertinent Medications Maalox (PRN), Colace, Theragran Pertinent Labs 07/20: Triglycerides 349, HDL 35 07/17: Glucose 100, Na 131 Nutritional Hx/Data Height 1.75 m Height (Calculated Centimeters) 175.3 Current Weight (lbs) 79.379 kg Weight (Calculated Kilograms) 79.4 Weight (Calculated Grams) 55367.7 [place] Body Weight 160 Lb (72.73 kg) % [place] Body Weight 109 Body Mass Index (BMI) 25.8 Weight Status Overweight GI Symptoms Skin Integrity/Comment: Skin: Area of concern, reddened, erythema Wound: cellulitis of both feet , wound to LT dorsal foot Elijah: 18 Per wound care note (07/17), Intrinsic factors that delay wound healing: Vasoconstriction effects from smoking. Extrinsic factors that delay wound healing: Decreased mobility. Both feet present with Mild non- pitting edema. Pt is meeting estimated nutritional needs- adequate to support wound healing. Current %PO Good (75-100%) Estimated Nutritional Goals BEE in Kcals: Using Current wt Calories/Kcals/Kg 25-30 Kcals Calculated 2425-5052 Protein: Using Current wt Protein g/k.0-1.2 Protein Calculated 80-95 Fluid: ml 4578-8989 ml (25-30 ml/kg) Nutritional Problem 1. Problem Problem Altered nutrition related labs Etiology r/t possible high fat intake/ family Hx Signs/Symptoms: aeb labs (07/20) Triglycerides 349, HDL 35. Malnutrition Related to Morbid Obesity Malnutrition related to morbid obesity No Intervention/Recommendation Comments 1. Recommend diet changed to Cardiac d/t labs (07/20) Triglycerides 349, HDL 2. Nurse to encourage fluid intake to reduce risk for constipation d/t pt Hx chronic constipation. Expected Outcomes/Goals Expected Outcomes/Goals 1. PO intake to continue to meet >75% of estimated nutritional needs. 2. Monitor PO intake, wt, nutrition related labs, and skin integrity to trend WNL. 3. F/U as low risk in 7-10 days, 07/28-07/31
--- NOTE | 2019-08-04 01:48 | Progress Notes ---
DATE: 08/03/2019 SUBJECTIVE: Chart reviewed and the patient interviewed. Also discussed the patient's condition with the staff and reviewed records and labs. The patient is still confused and is still forgetful and needs lots of redirections. The patient also is still anxious and is still guarded and paranoid. Also, is still complaining of feeling shaky. On the other hand, the patient is compliant with taking his Haldol and he "likes the Haldol." He also is motivated and participating in ____, but he is still angry and in irritable mood and easily agitated. ASSESSMENT: The patient is still psychotic and agitated and needs behavioral modification. TREATMENT PLAN: Continue monitoring behavior and condition closely. Also, continue adjusting medications and work on behavioral modification. JOB# [id number]
[2019-08-04] MEDS: Multivitamin Tab PO SCH (08:34)
[2019-08-04] MEDS: Eucerin Cream 16 oz Jar TP SCH ×2 (13:40→16:24)
[2019-08-04] MEDS: Betamethasone/Clotrimazole Cream 15 gm Tube TP SCH ×2 (13:40→16:24)
--- NOTE | 2019-08-04 19:39 | Internal Medicine Prog Note ---
Internal Medicine Subjective - Subjective Service Date: 08/04/19 Patient seen and examined:: without staff (HE FEELS WELL) Patient is:: awake, verbal, in bed, talking, confused Per staff patient has:: no adverse event Internal Medicine Objective - Physical Exam Vitals and I&O: Vital Signs Temp 97.9 F 08/04/19 14:00 Pulse 69 08/04/19 14:00 Resp 20 08/04/19 14:00 BP 137/84 08/04/19 14:00 Pulse Ox 94 08/04/19 14:00 Intake & Output 08/04/19 08/04/19 08/05/19 06:59 18:59 06:59 Intake Total 660 Balance 660 Intake: Oral 660 Other: # Voids 1 Active Medications: Current Medications Acetaminophen (Tylenol) 650 mg PO Q4HR PRN PRN Reason: Mild Pain (Scale 1-3) Stop: 09/15/19 18:53 Acetaminophen (Tylenol) 650 mg PO Q4H PRN PRN Reason: TEMP ABOVE 100 Stop: 09/18/19 14:41 Al Hydrox/Mg Hydrox/Simethicone (Maalox) 30 ml PO Q4HR PRN PRN Reason: GI DISTRESS Stop: 09/15/19 18:53 Betamethasone/Clotrimazole (Lotrisone Cream) 1 appl TP BID [facility] Stop: 09/22/19 14:59 Last Admin: 08/04/19 16:24 Dose: 1 appl Divalproex Sodium (Depakote Dr) 500 mg PO DAILY [facility]; Protocol Stop: 09/16/19 08:59 Last Admin: 08/04/19 08:34 Dose: 500 mg Divalproex Sodium (Depakote Dr) 1,000 mg PO HS [facility]; Protocol Stop: 09/18/19 20:59 Last Admin: 08/03/19 20:51 Dose: 1,000 mg Docusate Sodium (Colace) 250 mg PO DAILY [facility] Stop: 09/16/19 08:59 Last Admin: 08/04/19 08:34 Dose: 250 mg Haloperidol (Haldol) 5 mg PO BID [facility]; Protocol Stop: 09/29/19 08:59 Last Admin: 08/04/19 16:23 Dose: 5 mg Lorazepam (Ativan) 0.5 mg PO Q4HR PRN; Protocol PRN Reason: Anxiety/Agitation Stop: 08/16/19 20:24 Last Admin: 08/01/19 16:38 Dose: 0.5 mg Multi-Ingredient Cream (Eucerin Cream) 1 appl TP BID [facility] Stop: 09/26/19 16:59 Last Admin: 08/04/19 16:24 Dose: 1 appl Multivitamins/Vitamin C (Theragran) 1 tab PO DAILY [facility] Stop: 09/16/19 08:59 Last Admin: 08/04/19 08:34 Dose: 1 tab Risperidone (Risperdal) 1 mg PO BID [facility]; Protocol Stop: 09/29/19 08:59 Last Admin: 08/04/19 16:23 Dose: 1 mg Trihexyphenidyl HCl (Artane) 5 mg PO BID [facility] Stop: 09/20/19 08:59 Last Admin: 08/04/19 16:23 Dose: 5 mg Zolpidem Tartrate (Ambien) 5 mg PO HS PRN PRN Reason: Insomnia Stop: 09/15/19 18:53 Last Admin: 08/03/19 20:52 Dose: 5 mg General: alert HEENT: NC/AT, PERRLA, EOMI, anicteric sclerae, throat clear Neck: Supple, No JVD, No thyromegaly, +2 carotid pulse wo bruit, No LAD Lungs: CTAB Cardiovascular: RRR, Normal S1, Normal S2, without murmur Abdomen: soft, non-tender, non-distended Extremities: rash (OVER BOTH FEET), other (THE SKIN OF BOTH FEETS ARE IMPROVING) Neurological: no change Internal Medicine Assmt/Plan - Assessment Assessment: 1.CELLULITES OF BOTH FEET 2.CHRONIC CONSTIPATION 3.CHRONIC SMOKING 4.PSYCHOSIS - Plan Plan: CONTINUE ON CURRENT MEDICATION AND DIET. Nutritional Asmnt/Malnutr-PDOC - Dietary Evaluation Malnutrition Findings (Please click <Entered> for more info): Nutritional Asmnt/Malnutrition Start: 07/21/19 15: 52 Text: Status: Complete Freq: Protocol: Document 07/21/19 15:52 FAYE (Rec: 07/21/19 15:57 FAYE [email or web address]) Nutritional Asmnt/Malnutrition Patient General Information Nutritional Screening Low Risk Diagnosis Psychosis Pertinent Medical Hx/Surgical Hx Chronic smoking, Chronic constipation, Psychosis Subjective Information Consult: Wound to LT Dorsal Foot, redness to both feet Pt is a 69-year-old male admitted on 07/17 d/t psychosis. Pt is eating an estimated 100% of meals since admit date Per Meal/Nutrition Activity Record. Dietary is currently providing an estimated 2400 kcals and 90 gm Pro, to meet 100% kcal and 100% Pro needs. Per wound care note (07/17), Intrinsic factors that delay wound healing: Vasoconstriction effects from smoking. Extrinsic factors that delay wound healing: Decreased mobility. Both feet present with Mild non-pitting edema. Pt is meeting estimated nutritional needs-adequate to support wound healing. Recommend Nurse to encourage fluid intake to reduce risk for constipation d/t pt Hx chronic constipation. Recommend diet changed to Cardiac d/t labs (07/20) Triglycerides 349, HDL 35. Spoke with RN, Alley concerning recommendation for MD. Anthropometrics HT: 59 WT: 175 LB (79.55 kg) BMI: 25.84 (Overweight) GI/ Skin Integrity GI: WNL, Soft, Non-tender, Round BM: 07/19 x1 I/O: 1840/Not Noted Skin: Area of concern, reddened, erythema Wound: cellulitis of both feet , wound to LT dorsal foot Elijah: 18 Diet Order: Regular Estimated Energy Needs: ( Geriatric, CBW) 5136-8142 kcals (25-30 kcals/ kg) 80-95g Pro (1.0-1.2 g/kg) 4106-3839 ml (25-30 ml/kg) Current Diet Order/ Nutrition Support Regular Pertinent Medications Maalox (PRN), Colace, Theragran Pertinent Labs 07/20: Triglycerides 349, HDL 35 07/17: Glucose 100, Na 131 Nutritional Hx/Data Height 1.75 m Height (Calculated Centimeters) 175.3 Current Weight (lbs) 79.379 kg Weight (Calculated Kilograms) 79.4 Weight (Calculated Grams) 24532.7 [place] Body Weight 160 Lb (72.73 kg) % [place] Body Weight 109 Body Mass Index (BMI) 25.8 Weight Status Overweight GI Symptoms Skin Integrity/Comment: Skin: Area of concern, reddened, erythema Wound: cellulitis of both feet , wound to LT dorsal foot Elijah: 18 Per wound care note (07/17), Intrinsic factors that delay wound healing: Vasoconstriction effects from smoking. Extrinsic factors that delay wound healing: Decreased mobility. Both feet present with Mild non- pitting edema. Pt is meeting estimated nutritional needs- adequate to support wound healing. Current %PO Good (75-100%) Estimated Nutritional Goals BEE in Kcals: Using Current wt Calories/Kcals/Kg 25-30 Kcals Calculated 6167-8599 Protein: Using Current wt Protein g/k.0-1.2 Protein Calculated 80-95 Fluid: ml 6142-8451 ml (25-30 ml/kg) Nutritional Problem 1. Problem Problem Altered nutrition related labs Etiology r/t possible high fat intake/ family Hx Signs/Symptoms: aeb labs (07/20) Triglycerides 349, HDL 35. Malnutrition Related to Morbid Obesity Malnutrition related to morbid obesity No Intervention/Recommendation Comments 1. Recommend diet changed to Cardiac d/t labs (07/20) Triglycerides 349, HDL 2. Nurse to encourage fluid intake to reduce risk for constipation d/t pt Hx chronic constipation. Expected Outcomes/Goals Expected Outcomes/Goals 1. PO intake to continue to meet >75% of estimated nutritional needs. 2. Monitor PO intake, wt, nutrition related labs, and skin integrity to trend WNL. 3. F/U as low risk in 7-10 days, 07/28-07/31
== END 2019-08-04 20:00 | DRG 885 ==
LOC: GERO 17:36
PROVIDERS: ADMIT Psychiatry & Neurology Psychiatry; ATTEND Psychiatry & Neurology Psychiatry
DX: F25.9 Schizoaffective disorder, unspecified (principal); L03.116 Cellulitis of left lower limb; L03.115 Cellulitis of right lower limb; D64.9 Anemia, unspecified; J44.9 Chronic obstructive pulmonary disease, unspecified; K21.9 Gastro-esophageal reflux disease without esophagitis; F29 Unspecified psychosis not due to a substance or known physiological condition; K59.09 Other constipation; F41.9 Anxiety disorder, unspecified; F17.210 Nicotine dependence, cigarettes, uncomplicated; Z88.0 Allergy status to penicillin
CPT/HCPCS: 83036-90; G0410; Z7610